=== PATIENT | female | born 1970 | race Caucasian/White ===

== ENCOUNTER → 2016-07-31 07:53 | Day surgery (SDC) | payer OTHER ==
--- NOTE | 2016-07-26 17:40 | HP ---
PREOPERATIVE HISTORY AND PHYSICAL: DATE OF ADMISSION/SURGERY: 07/31/16 [facility] DATE OF OFFICE VISIT/ENCOUNTER: 07/25/16 ATTENDING SURGEON: Caprice Sarabia MD PROCEDURE: Left thumb carpometacarpal arthroplasty. CHIEF COMPLAINT: Left thumb pain. HISTORY OF PRESENT ILLNESS: This is a 45-year-old female who complains of pain at the base of her thumb ongoing for several months. It has gradually gotten worse over time. She states any kind of use of her thumb increases the pain. She denies any previous injury to this thumb. She uses hydrocodone for pain control primarily for back pain and reports the pain medication is minimally helpful for her thumb pain. She has been offered a cortisone injection but prefers to proceed with more definitive treatment with surgical intervention in the form of a left thumb carpometacarpal arthroplasty. PAST MEDICAL HISTORY: 1. Chronic back pain. 2. Sleep apnea, CPAP at night. 3. GERD. 4. Hypertension. 5. Hypercholesterolemia. 6. Asthma. 7. Depression. PAST SURGICAL HISTORY: None. CURRENT MEDICATIONS: 1. Atorvastatin calcium 40 mg 1 tab daily. 2. Bupropion HCl ER 150 mg twice a day. 3. Esomeprazole sodium 40 mg daily. 4. Gabapentin 300 mg two daily. 5. Hydrocodone/acetaminophen 5/325 one q.4 to 6 hours p.r.n. pain. 6. Losartan potassium 50 mg daily. 7. Naproxen 500 mg b.i.d. p.r.n. 8. ProAir HFA inhaler 2 puffs q.4 hours p.r.n. 9. Singulair 10 mg daily. 10. Trazodone HCl 50 mg q.h.s. p.r.n. ALLERGIES: CECLOR, ERYTHROMYCIN, LATEX, LYRICA, PATADAY, PENICILLIN, SULFA ANTIBIOTICS. FAMILY MEDICAL HISTORY: Significant for heart disease. SOCIAL HISTORY: The patient is currently disabled and is unemployed. She is a smoker, approximately 12 cigarettes per day. She had been up to a pack and a half per day and has smoked since age 13. Denies recreational drug use, admits to alcohol use on rare occasion. REVIEW OF SYSTEMS: General: Positive for night sweats. Negative for fevers or chills. No known anesthesia problems in the past. HEENT: Negative for headache, lightheadedness, or syncopal episodes. Integumentary: Negative for abrasions, lesions, or open wounds. Cardiothoracic: Positive for hypertension. Negative for chest pain, palpitations, or edema. Pulmonary: Positive for asthma, shortness of breath with exertion, and chronic cough. GI: Positive for GERD, negative for nausea, vomiting, diarrhea, or constipation. : Positive for urinary urgency, negative for nocturia, urinary frequency, history of UTIs, or kidney problems. Musculoskeletal: Positive for current complaint, positive for chronic back pain. Neurological: Positive for depression , negative for paresthesias, numbness, history of seizure, stroke, or epilepsy. Endocrine: Negative for diabetes and thyroid issues. Hematologic: Negative for easy bruising, anemia, excessive bleeding, or history of DVT. Infectious Disease: Negative for history of MRSA, hepatitis C, or HIV. PHYSICAL EXAMINATION GENERAL: Well-developed, well-nourished, 45-year-old female in no acute distress. VITAL SIGNS: Height 5 feet tall, weight 230 pounds, pulse rate 72, blood pressure 115/80. HEENT: Normocephalic, atraumatic. Pupils are equal, round, and reactive to light and accommodation. Extraocular movements are intact. NECK: Supple. No palpable lymph nodes. Throat is clear. PULMONARY: Lungs are clear to auscultation bilaterally. No wheezes, rales, or rhonchi. CARDIOTHORACIC: Regular rate and rhythm. S1, S2. No murmurs, rubs, or gallops. No edema. ABDOMEN: Positive bowel sounds, soft, and nontender. NEUROLOGICAL: Alert and oriented x3. Cranial nerves II through XII are intact. Sensation is intact to light touch. MUSCULOSKELETAL: On exam of the left hand, she has tenderness at the thumb CMC joint, positive grind test, negative Maribel's test. She has a little bit of extension and deformity at the MP joint. She cannot fully oppose her thumb to the base of her small finger. Neurovascular function is intact and skin is intact. DIAGNOSTIC STUDIES: Imaging studies: X-rays, AP, lateral, and oblique of the left thumb, show severe degenerative arthritis of the CMC joint. IMPRESSION: Left thumb carpometacarpal arthritis. PLAN: The patient is scheduled to undergo a left thumb CMC arthroplasty with Dr. Sarabia on 07/31/16. She will follow up in the office 10 to 14 days postop for recheck and suture removal. She has a supply of hydrocodone/acetaminophen 5/325 at home as prescribed by Dr. Najera for back pain should she need additional pain medication after surgery; it will be prescribed at that time. JIM ESPINOSA [id number]/[facility] #: [id number] ISABEL
[~2016-07-31 07:53] MED LIST: Buffered Lidocaine 1% SYR 3ML* 3 ML/SYR SYRINGE INTRADERM ONE; Buffered Lidocaine 1% SYR 3ML* 3 ML/SYR SYRINGE ONE; Bupivacaine 0.5% SDV PF* 30 ML VIAL ONE; Clindamycin 900 MG IVPREMIX(* 900 MG/50 ML SDV IV ONE; HYDROcodone/ACETAMIN 5-325 MG* 1 TAB ONE; Ketorolac INJ* 30 MG/ML 1 ML VIAL IV PRN; Lidocaine 0.5%* 50 ML SDV ONE; Lidocaine 2% PF * 5 ML VIAL ONE; Midazolam* 1 MG/ML 2 ML VIAL (2 MG) ONE; Propofol* 10 MG/ML 20 ML BTL IV PUSH ONE; fentaNYL* 50 MCG/ML 2 ML VIAL (100 MCG VIAL) IV PRN; fentaNYL* 50 MCG/ML 2 ML VIAL (100 MCG VIAL) ONE
[2016-07-31 11:29] VITALS: BP 109/72
--- NOTE | 2016-08-01 00:01 | OP ---
DATE OF OPERATION: 07/31/16 - [facility] DATE OF : 70 SURGEON: Caprice Sarabia MD MERCANTILE AGENT: JIM Keith ANESTHESIOLOGIST: Daniel Anand DO ANESTHESIA: IV regional. PRE-OP DIAGNOSIS: Left thumb carpometacarpal arthritis. POST-OP DIAGNOSIS: Left thumb carpometacarpal arthritis. OPERATIVE PROCEDURE: Left thumb CMC arthroplasty. INDICATIONS: Maggie is a 45-year-old female with pain at the left thumb CMC joint. She has failed conservative treatment and presents for left thumb CMC arthroplasty. ESTIMATED BLOOD LOSS: Zero. TOURNIQUET TIME: About 35 minutes. DESCRIPTION OF PROCEDURE: The patient was brought to the operating room and was given a sedation anesthetic and a Eden block. The skin of her left upper extremity was prepped and draped in the usual sterile fashion. Some Marcaine was injected in the area of incision site. An S-shaped incision was made centered at the left thumb CMC joint. Dissected bluntly through the subcutaneous tissue and branches of the radial sensory nerve were located and then retracted by the surgical elastic knitter hand frame, Soha Pozo. The radial artery branches were located and retracted then and the first compartment tendons were retracted. A distally based U-shaped flap was created at the thumb CMC joint and it was subperiosteally dissected off the trapezium. The ligamentous attachments of the trapezium were removed and then the trapezium was split in half with an osteotome and then removed in its entirety with a rongeur. The wound was copiously irrigated with saline. The CMC joint capsule was then secured to the FCR tendon in the base of the wound with a 4-0 nylon suture and the remainder of the capsule was closed with 4-0 nylon suture. This gave the thumb metacarpal good abduction position. The skin edges were reapproximated with 4-0 nylon suture and then, the wound was dressed with Xeroform, 4x4, Webril, and a thumb spica splint with the metacarpal abducted. There was no hyperextension of the thumb MP joint. The patient tolerated the procedure well and was brought to the recovery room in good condition. [id number]/[facility] #: [id number] MTDD
== END | disposition home or self-care (01) ==
LOC: OREAST 07:53
PROVIDERS: ATTEND Orthopaedic Surgery
DX: M18.12 Unilateral primary osteoarthritis of first carpometacarpal joint, left hand (principal); I10 Essential (primary) hypertension; J45.909 Unspecified asthma, uncomplicated; G47.33 Obstructive sleep apnea (adult) (pediatric); F17.210 Nicotine dependence, cigarettes, uncomplicated
CPT/HCPCS: 88304; 88311; J2250; J2704; J3010

== ENCOUNTER 2018-03-10 11:44 | Emergency (ER) | payer OTHER ==
[2018-03-10 12:05] VITALS: BP 159/69
[2018-03-10] MEDS ORDERED: Tetan/Diph/Pertus SYR(Tdap)* 0.5 ML SYR(BOOSTRIX) use SYR IM ONE (12:10)
--- NOTE | 2018-03-10 12:16 | UC ---
Skin Complaint HPI - HPI Summary HPI Summary: 47 yo female presents with cat bite to left distal forearm. She tells me that 2 days ago she was playing with her neighbor's cat (indoor cat) and the cat bite her left wrist. Pt is unsure if the cat is UTD on vaccines. Pt washed the area and applied antibiotic ointment. Unsure date of last tetanus. Noticed some yellow drainage from one of the puncture wounds this morning - prompting her visit to . Denies fever or chills. - History of Current Complaint Chief Complaint: UCBiteInjury Time Seen by Provider: 03/10/18 12:09 Stated Complaint: CAT BITE Hx Obtained From: Patient Hx Last Menstrual Period: 1 MONTH AGO Onset/Duration: Gradual Onset Skin Exposure Onset/Duration: Days Ago Onset Severity: Moderate Current Severity: Moderate Pain Intensity: 6 Pain Scale Used: 0-10 Numeric - Allergy/Home Medications Allergies/Adverse Reactions: Allergies Allergy/AdvReac Type Severity Reaction Status Date / Time bee venom protein (honey bee) Allergy Severe Difficulty Verified 03/10/18 12:05 Breathing latex Allergy Severe Rash Verified 03/10/18 12:05 pregabalin [From Lyrica] Allergy Intermediate Hives Verified 03/10/18 12:05 sulfamethoxazole Allergy Intermediate Hives Verified 03/10/18 12:05 [From Bactrim] trimethoprim [From Bactrim] Allergy Intermediate Hives Verified 03/10/18 12:05 Penicillins AdvReac Mild gives her Verified 03/10/18 12:05 "the shakes" erythromycin base AdvReac GI Upset Verified 03/10/18 12:05 pataday Allergy Severe burning Uncoded 03/10/18 12:05 and swelling eyes Review of Systems Constitutional: Negative Skin: Other - Cat bite left wrist Respiratory: Negative Cardiovascular: Negative Neurovascular: Negative Neurological: Negative Psychological: Negative All Other Systems Reviewed And Are Negative: Yes PMH/Surg Hx/FS Hx/Imm Hx - Additional Past Medical History Additional PMH: Chronic pain Cardiovascular History: Hypertension Respiratory History: Asthma GI/ History: Gastroesophageal Reflux Psychological History: Anxiety, Depression - Surgical History Surgical History: Yes Surgery Procedure, Year, and Place: Left thumb joint replacement 07/2016 [facility] - Family History Known Family History: Positive: Hypertension Negative: Cardiac Disease, Diabetes - Social History Occupation: Disabled Lives: With Family Alcohol Use: None Substance Use Type: None Smoking Status (MU): Current Every Day Smoker Type: Cigarettes Amount Used/How Often: 8 cigarettes/day Have You Smoked in the Last Year: Yes When Did the Patient Quit Smoking/Using Tobacco: 08/13/2016 Household Exposure Type: Cigarettes Physical Exam - Summary Physical Exam Summary: GENERAL: NAD. WDWN. No pain distress. SKIN: LEFT WRIST: Two small puncture wounds on dorsal aspect. One puncture wound with mild yellow drainage. No warmth or streaking. NECK: Supple. Nontender. No lymphadenopathy. CHEST: No accessory muscle use. Breathing comfortably and in no distress. CV: Pulses intact. Cap refill <2seconds MSK: Left wrist: FROM NEURO: Alert. PSYCH: Age appropriate behavior. Triage Information Reviewed: Yes Vital Signs: Initial Vital Signs Temp 98.6 F 03/10/18 12:00 Pulse 99 03/10/18 12:00 Resp 18 03/10/18 12:00 BP 159/69 03/10/18 12:00 Pulse Ox 96 03/10/18 12:00 Vital Signs Reviewed: Yes Course/Dx - Course Course Of Treatment: Cat bite to left wrist. Pt says that she is allergic to PCN , therefore will start her with Doxycycline. tdap updated today - Diagnoses Provider Diagnoses: Cat bite left wrist Discharge - Sign-Out/Discharge Documenting (check all that apply): Patient Departure All imaging exams completed and their final reports reviewed: No Studies - Discharge Plan Condition: Stable Disposition: HOME Prescriptions: DOXYcycline CAP(*) [DOXYcycline 100MG CAP(*)] 100 mg PO BID #14 cap Patient Education Materials: Animal Bite (ED) Referrals: Alphonso Pal MD [Primary Care Provider] - Additional Instructions: If you develop a fever, shortness of breath, chest pain, new or worsening symptoms - please call your PCP or go to the ED. Your blood pressure was high at todays visit. Please see your primary provider within 4 weeks for recheck and re-evaluation. - Billing Disposition and Condition Condition: STABLE Disposition: Home - Attestation Statements Provider Attestation: Per institutional requirements, I have reviewed the chart, however, I was not consulted specifically or made aware of this patient by the midlevel provider. I did not personally evaluate, interact with , or disposition this patient.
== END 2018-03-10 12:30 | disposition home or self-care (01) ==
LOC: UCEAST 11:44
CPT/HCPCS: 90715; 99212; G0463

== ENCOUNTER 2018-07-22 05:37 | Day surgery (SDC) | payer OTHER ==
--- NOTE | 2018-07-06 19:37 | HP ---
PREOPERATIVE HISTORY AND PHYSICAL: DATE OF SURGERY/ADMISSION: 07/11/18 DATE OF OFFICE VISIT/ENCOUNTER: 07/02/18 ATTENDING SURGEON: Caprice Sarabia MD * (DICTATED BY JIM ESPINOSA) PROCEDURE: Left thumb trigger release, right thumb CMC joint cortisone injection. CHIEF COMPLAINT: Left thumb triggering, base of right thumb arthritis pain. HISTORY OF PRESENT ILLNESS: This is a 47-year-old female who has had ongoing problems with triggering in her left thumb for a couple of months now. She has had a cortisone injection in the past, which is helpful, but unfortunately the triggering came back. She has also been complaining of pain at the base of her right thumb and x-rays have shown degenerative changes at the CMC joint. She has also had a cortisone injection for this in the past, which was helpful, but the pain has returned. She is interested in pursuing surgical intervention for the right thumb trigger release and also will have a cortisone injection for the right thumb CMC joint at that time. The patient has recently been using a wheel-chair for some mobility issues related to her chronic back pain. She has also been diagnosed with diabetes. She is currently using tramadol for pain control primarily for her back pain that is prescribed by Dr. Najera. PAST MEDICAL HISTORY: 1. Chronic back pain. 2. Diabetes. 3. Sleep apnea, CPAP at night. 4. GERD. 5. Hypertension. 6. Hypercholesterolemia. 7. Asthma. 8. Depression. PAST SURGICAL HISTORY: Left thumb CMC joint arthroplasty. CURRENT MEDICATIONS: 1. Atorvastatin 40 mg 1 tab daily. 2. Bupropion HCl ER XL 300 mg daily. 3. Clonazepam 0.5 mg daily. 4. Escitalopram oxalate 10 mg daily. 5. Esomeprazole magnesium 40 mg daily. 6. Gabapentin 300 mg 1 tab q.a.m., 3 tabs q.h.s. 7. Ipratropium bromide/albuterol sulfate use as needed. 8. Losartan potassium 50 mg daily. 9. Metformin HCl 500 mg twice a day. 10. Mirtazapine 15 mg daily. 11. Naproxen 500 mg twice daily as needed. 12. ProAir HFA 2 puffs every 4 hours as needed. 13. Proventil HFA 2 puffs q.4 hours. 14. QVAR 80 mcg/ACT. 15. Singulair 10 mg daily. ALLERGIES: CECLOR, ERYTHROMYCIN, LATEX, LYRICA, PATADAY, PENICILLIN, SULFA ANTIBIOTICS. FAMILY MEDICAL HISTORY: Significant for heart disease. SOCIAL HISTORY: The patient is currently disabled and unemployed. She is a smoker. She smokes approximately a half pack a day since age 13. She denies recreational drug use. She drinks alcohol on rare occasion. REVIEW OF SYSTEMS: Negative for general, cephalic, cardiovascular, GI, . Musculoskeletal: Positive for complaint and chronic back pain. Negative for integumentary, endocrine, neurologic, and hematologic symptoms. Infectious Disease: Negative for history of MRSA, hepatitis . PHYSICAL EXAMINATION GENERAL: Well-nourished 47-year-old female, in no acute distress. VITAL SIGNS: Height 5 feet tall, weight 266 pounds. Pulse rate 88, blood pressure 126/76. HEENT: Normocephalic, atraumatic. Pupils are equal, round, and reactive to light and accommodation. Extraocular movements are intact. Throat is clear. NECK: Supple. No palpable lymph nodes. PULMONARY: Lungs are clear to auscultation bilaterally. No wheezes, rales, or rhonchi. CARDIOVASCULAR: Regular rate and rhythm. S1, S2. No murmurs, rubs, or gallops. No edema. ABDOMEN: Positive bowel sounds. Soft, nontender. NEUROLOGICAL: Alert and oriented x3. Cranial nerves II through XII are intact. Sensation is intact to light touch. MUSCULOSKELETAL: On exam of the left thumb, she has tenderness to palpation at the A1 joey secondary to pain. On exam of her right thumbs, there is tenderness at the base of the thumb at the CMC joint. She has good motion in her thumb in abduction and adduction. She has a positive grind test. Neurovascular function is intact. IMAGING STUDIES: X-rays: AP, lateral, and oblique of the right thumb showed mild degenerative arthritis at the CMC joint. IMPRESSION: Left thumb trigger thumb, right thumb CMC arthritis. PLAN: The patient is scheduled to undergo a left thumb trigger thumb release and a right thumb CMC joint cortisone injection with Dr. Sarabia on 07/11/18. She will return to the office 10 days postop for followup and suture removal. She has pain medication, tramadol at this time as prescribed by Dr. Najera and she will use that for postoperative pain management. JIM ESPINOSA [id number]/[facility] #: [id number] [facility] HEALTHJerrod
[~2018-07-22 05:37] MED LIST changes: -Buffered Lidocaine 1% SYR 3ML* 3 ML/SYR SYRINGE INTRADERM ONE; -Buffered Lidocaine 1% SYR 3ML* 3 ML/SYR SYRINGE ONE; +Buffered Lidocaine 1% SYRIN* 1 ML/SYRINGE INTRADERM ONE; -Bupivacaine 0.5% SDV PF* 30 ML VIAL ONE; -Clindamycin 900 MG IVPREMIX(* 900 MG/50 ML SDV IV ONE; -HYDROcodone/ACETAMIN 5-325 MG* 1 TAB ONE; -Ketorolac INJ* 30 MG/ML 1 ML VIAL IV PRN; -Lidocaine 0.5%* 50 ML SDV ONE; -Lidocaine 2% PF * 5 ML VIAL ONE; -Midazolam* 1 MG/ML 2 ML VIAL (2 MG) ONE; +Ondansetron TAB* 4 MG PO ONE; -Propofol* 10 MG/ML 20 ML BTL IV PUSH ONE; -fentaNYL* 50 MCG/ML 2 ML VIAL (100 MCG VIAL) IV PRN; -fentaNYL* 50 MCG/ML 2 ML VIAL (100 MCG VIAL) ONE
[2018-07-22] MEDS ORDERED: Famotidine IV* 10 MG/ML 2 ML (20 mg) IV ONE (06:00)
[2018-07-22] MEDS ORDERED: Lactated Ringers 1000 ML Bag* 1,000 ML IV SCH (06:00)
[2018-07-22] MEDS ORDERED: Famotidine IV* 10 MG/ML 2 ML (20 mg) ONE (06:31)
[2018-07-22] MEDS ORDERED: Ondansetron ODT TAB* 4 MG ONE (06:31)
[2018-07-22] MEDS ORDERED: Morphine VIAL* 4 MG/ML VIAL (1 ml vial) IV PRN (06:45)
[2018-07-22] MEDS ORDERED: DiMENhydriNATE IV* 50 MG/ML VIAL IV PUSH PRN (06:45)
[2018-07-22] MEDS ORDERED: PROCHLORPERAZINE INJ 5 MG/ML 2 ML VIAL IV PRN (06:45)
[2018-07-22] MEDS ORDERED: fentaNYL* 50 MCG/ML 2 ML VIAL (100 MCG VIAL) IV PRN (06:45)
[2018-07-22] MEDS ORDERED: Naloxone* 0.4 MG/ML 1 ML VIAL IV PRN (06:45)
[2018-07-22] MEDS ORDERED: oxyCODONE/Acetamin 5/325 MG* TAB PO PRN (06:45)
[2018-07-22] MEDS ORDERED: Bupivacaine 0.5%* 50 ML VIAL ONE (07:17)
[2018-07-22] MEDS ORDERED: Lidocaine 1% INJ* 10 MG/ML 30 ML SDV ONE (07:17)
[2018-07-22] MEDS ORDERED: Midazolam* 1 MG/ML 5 ML VIAL (5 MG) ONE (07:22)
[2018-07-22] MEDS ORDERED: fentaNYL* 50 MCG/ML 2 ML VIAL (100 MCG VIAL) ONE (07:22)
[2018-07-22] MEDS ORDERED: methylPREDNISolone ACETATE 80* 80 MG/ML 1 ML VIAL ONE (07:34)
[2018-07-22] MEDS ORDERED: oxyCODONE/Acetamin 5/325 MG* TAB ONE (08:40)
[2018-07-22 10:15] VITALS: BP 145/78
--- NOTE | 2018-07-22 20:14 | OP ---
DATE OF OPERATION: 07/22/18 - [facility] DATE OF : 70 SURGEON: Caprice Sarabia MD. MECHANICAL ENGINEERING DIRECTOR: JIM Keith. ANESTHESIA: Local MAC. PRE-OP DIAGNOSIS: Left trigger thumb and right thumb carpometacarpal arthritis. POST-OP DIAGNOSIS: Left trigger thumb and right thumb carpometacarpal arthritis. OPERATIVE PROCEDURE: Left trigger thumb release and right thumb carpometacarpal injection. ESTIMATED BLOOD LOSS: Zero. TOURNIQUET TIME: Approximately 10 minutes on the left. INDICATIONS FOR PROCEDURE: Maggie is a 47-year-old female with pain in both thumbs. The left is triggering and locking and the right is painful at the base. She presents for right thumb injection and left trigger thumb release. DESCRIPTION OF PROCEDURE: The patient was brought to the operating room, was given a sedation anesthetic and a local infiltration of 10 cc of 1% plain lidocaine over the A1 joey of the left thumb. Additionally was given injection of 80 mg of Depo- Medrol and 2 cc of 1% plain lidocaine in the area of the right thumb CMC joint. The skin of her left hand and forearm was prepped and draped in the usual sterile fashion. The hand and forearm were exsanguinated and the tourniquet elevated to 250 mmHg. A transverse incision was made centered over the A1 joey. We dissected bluntly through the subcutaneous tissue. Branches of the common digital nerve of the thumb were located and retracted by the rn neurosurgical, Soha Pozo. The A1 joey was incised longitudinally completely releasing the flexor tendon, which was in good condition. The wound was irrigated and the skin edges reapproximated with 4-0 nylon suture. The wound was dressed with Xeroform, 4x4, Webril, and an Efraín wrap. The patient tolerated the procedure well and was brought to the recovery room in good condition. [id number]/[facility] #: [id number] [facility]
== END 2018-07-22 09:30 | disposition home or self-care (01) ==
LOC: OR 05:37
PROVIDERS: ATTEND Orthopaedic Surgery
DX: M65.312 Trigger thumb, left thumb (principal); M18.11 Unilateral primary osteoarthritis of first carpometacarpal joint, right hand; E11.9 Type 2 diabetes mellitus without complications; Z79.84 Long term (current) use of oral hypoglycemic drugs; Z72.0 Tobacco use; E78.5 Hyperlipidemia, unspecified; G47.33 Obstructive sleep apnea (adult) (pediatric)
CPT/HCPCS: A9270-GY; J1040; J2250; J3010

== ENCOUNTER → 2018-11-18 05:51 | Day surgery (SDC) | payer OTHER ==
--- NOTE | 2018-11-10 13:21 | HP ---
PREOPERATIVE HISTORY AND PHYSICAL: DATE OF ADMISSION/SURGERY: 11/18/18 DATE OF OFFICE VISIT/ENCOUNTER: 10/29/18 ATTENDING SURGEON: Caprice Sarabia MD.* (DICTATED BY JIM ESPINOSA) PROCEDURE: Left wrist carpal tunnel release. HISTORY OF PRESENT ILLNESS: This is a 48-year-old female, who has had complaint of numbness and tingling in her left hand ongoing for some time now. She recently had a nerve conduction study, which showed carpal tunnel syndrome. She has tried wearing wrist braces in the past, but they were not helpful and in fact made her symptoms worse. She denies any specific injury. The symptoms have been progressively worsening and she is now interested in surgical intervention. The patient has recently been using a wheelchair for some mobility issues related to her chronic back pain. She has also been diagnosed with diabetes. She is currently using tramadol for pain control primarily for her back. This is prescribed by Dr. Najera. PAST MEDICAL HISTORY: 1. Chronic back pain. 2. Diabetes. 3. Sleep apnea with CPAP at night. 4. GERD. 5. Hypertension. 6. Hypercholesterolemia. 7. Asthma. 8. Depression. PAST SURGICAL HISTORY: 1. Left thumb CMC joint arthroplasty. 2. Left thumb trigger release. CURRENT MEDICATIONS: 1. Atorvastatin calcium 40 mg daily. 2. Bupropion HCl ER XL 300 mg daily. 3. Clonazepam 0.5 mg daily. 4. Escitalopram oxalate 10 mg daily. 5. Cyanocobalamin 1000 mcg/mL monthly. 6. Esomeprazole magnesium 40 mg daily. 7. Esomeprazole sodium 40 mg daily. 8. Gabapentin 300 mg 1 q.a.m., 3 q.h.s. 9. Ipratropium bromide/albuterol sulfate p.r.n. 10. Losartan potassium 50 mg daily. 11. Metformin HCl 500 mg 1 twice a day. 12. Mirtazapine 15 mg. 13. Naproxen 500 mg twice a day p.r.n. 14. ProAir HFA inhaler p.r.n. 15. Proventil HFA inhaler 2 puffs q.4 hours. 16. QVAR 80 mcg/ACT. 17. Singulair 10 mg daily. 18. Tramadol HCl 50 mg b.i.d. 19. Vitamin D 5000 units weekly. ALLERGIES: CECLOR, ERYTHROMYCIN, LATEX, LYRICA, PATADAY, PENICILLIN, SULFA ANTIBIOTICS. FAMILY MEDICAL HISTORY: Significant for heart disease. SOCIAL HISTORY: The patient is currently disabled and unemployed. She is a smoker approximately half-a-pack a day since age 13. She also uses a vape. She denies recreational drug use and she denies alcohol use. REVIEW OF SYSTEMS: Negative for general, cephalic, cardiovascular, GI, and . Musculoskeletal: Positive for current complaint along with chronic back pain. Negative integumentary, endocrine, neurologic, and hematologic symptoms. Infectious Diseases: Negative for history of MRSA, hepatitis C, HIV. PHYSICAL EXAMINATION GENERAL: A well-developed, well-nourished 48-year-old female, in no acute distress. She presents in a wheelchair. VITAL SIGNS: Height 5 feet tall, weight 255 pounds. Pulse rate 79, blood pressure 138/82. HEENT: Normocephalic, atraumatic. Pupils are equal, round, and reactive to light and accommodation. Extraocular movements are intact. Throat is clear. NECK: Supple. No palpable lymph nodes. PULMONARY: Lungs are clear to auscultation bilaterally. No wheezes, rales, or rhonchi. CARDIOVASCULAR: Regular rate and rhythm. S1, S2. No murmurs, rubs, or gallops. No edema. ABDOMEN: Positive bowel sounds. Soft, nontender. NEUROLOGICAL: Alert and oriented x3. Cranial nerves II through XII are intact. MUSCULOSKELETAL: On exam of her left hand, there is minimal thenar wasting and she has weakness with thumb abduction, decreased sensation in all of her fingers. Positive Tinel's sign of the median nerve at the wrist. IMAGING STUDIES: EMG nerve conduction study showed evidence of left carpal tunnel syndrome. IMPRESSION: Left carpal tunnel syndrome. PLAN: The patient is scheduled to undergo a left carpal tunnel release with Dr. Sarabia on 11/18/18. She will return to the office 10 days postop for followup and suture removal. A prescription for [place]wood was e-scribed to the patient's pharmacy for postoperative pain management. She will be sure to contact Dr. Najera to let him know she will be taking an additional narcotic other than what he prescribes. RHONDA WOODRUFF, JIM [id number]/[facility] #: [id number] [facility] CENTERJerrod
[~2018-11-18 05:51] MED LIST changes: -Buffered Lidocaine 1% SYRIN* 1 ML/SYRINGE INTRADERM ONE; +Lidocaine 1% INJ* 10 MG/ML 30 ML SDV ONE; +Lidocaine 2% PF * 5 ML VIAL ONE; +Midazolam* 1 MG/ML 2 ML VIAL (2 MG) ONE; +Naloxone* 0.4 MG/ML 1 ML VIAL IV PRN; -Ondansetron TAB* 4 MG PO ONE; +Propofol* 10 MG/ML 20 ML BTL ONE; +fentaNYL* 50 MCG/ML 2 ML VIAL (100 MCG VIAL) ONE
[2018-11-18 08:45] VITALS: BP 127/72
--- NOTE | 2018-11-18 13:18 | OP ---
CC: Dr. Sarabia* OPERATIVE REPORT: DATE OF OPERATION: 11/18/18 - [facility] DATE OF : 70 SURGEON: Caprice Sarabia MD. SAP DATA ANALYST: JIM Keith. ANESTHESIOLOGIST: Lawrence Ramirez MD. ANESTHESIA: Local MAC. PRE-OP DIAGNOSIS: Left carpal tunnel syndrome. POST-OP DIAGNOSIS: Left carpal tunnel syndrome. OPERATIVE PROCEDURE: Left carpal tunnel release. ESTIMATED BLOOD LOSS: Zero. TOURNIQUET TIME: About 10 minutes. INDICATIONS FOR PROCEDURE: Maggie is a 48-year-old female who has numbness and tingling in the median nerve distribution of her left hand. She presents for left carpal tunnel release. DESCRIPTION OF PROCEDURE: The patient was brought to the operating room, was given a sedation anesthetic and a local infiltration of 10 cc of 1% plain lidocaine in the palm of her left hand. The skin of her left hand and forearm was then prepped and draped in usual sterile fashion. The hand and forearm were exsanguinated and the tourniquet elevated to 250 mmHg. A longitudinal incision was made in the palm in line with the ring finger. We dissected through the subcutaneous tissue down to the transverse carpal ligament. The ligament was divided sharply with a knife and then more proximally with the scissors. The nerve was dissected free from the surrounding tissue and there was an area of moderate compression in the mid portion of the ligament. The wound was irrigated and the skin edges reapproximated with 4- 0 nylon suture. The wound was dressed with Xeroform, 4x4, Webril, and Efraín wrap. The patient tolerated the procedure well and was brought to the recovery room in good condition. [id number]/[facility] #: [id number] [facility]
== END | disposition home or self-care (01) ==
LOC: OR 05:51
PROVIDERS: ATTEND Orthopaedic Surgery
DX: G56.02 Carpal tunnel syndrome, left upper limb (principal); E11.9 Type 2 diabetes mellitus without complications; Z79.84 Long term (current) use of oral hypoglycemic drugs; M54.9 Dorsalgia, unspecified; G47.33 Obstructive sleep apnea (adult) (pediatric); K21.9 Gastro-esophageal reflux disease without esophagitis; I10 Essential (primary) hypertension; E78.00 Pure hypercholesterolemia, unspecified; J45.909 Unspecified asthma, uncomplicated; F32.9 Major depressive disorder, single episode, unspecified; E78.5 Hyperlipidemia, unspecified; Z68.43 Body mass index [BMI] 50.0-59.9, adult
CPT/HCPCS: 81025; J2250; J2704; J3010

== ENCOUNTER 2019-02-07 09:41 | Emergency (ER) | payer OTHER ==
--- OUTSIDE RECORDS SUMMARY | 2019-02-07 09:50 | XMS REPORT | Continuity of Care Document ---
:1970 External Reference #:[id number] Author Name Alphonso Pal M.D. Address [address] [facility] [address] [place] [address] Care Team Providers Name Role Phone HCP given Care Team Information Hand Rounder Unavailable Je Castillo MD [facility] - Care Team Information Hand Rounder [phone] Ophthalmology [facility]. - Durable Care Team Information Hand Rounder [employer] Cristino Galeas MD - Orthopaedic Care Team Information Hand Rounder [facility] - Pain Medicine Care Team Information Hand Rounder [phone] Sleep Clinic - Sleep Disorder Care Team Information Hand Rounder [phone] Diagnostic Caprice Sarabia MD - Orthopaedic Care Team Information Hand Rounder [phone] Surgery Je Wilburn MD - Internal Care Team Information Hand Rounder [phone] Medicine EvangelistDoris MD - Physical Care Team Information Hand Rounder Medicine & Rehabilitation Jeb Chavez M.D. - Rheumatology Care Team Information Hand Rounder [phone] Problems Active Problems Provider Date Pure hypercholesterolemia Alphonso Pal M.D. Onset: 05/31/2009 Dysthymia Alphonso Pal M.D. Onset: 05/31/2009 Anxiety state Alphonso Pal M.D. Onset: 05/31/2009 Backache Alphonso Pal M.D. Onset: 05/31/2009 Gastroesophageal reflux disease Alphonso Pal M.D. Onset: 05/31/2009 Intrinsic asthma without status asthmaticus Alphonso Pal M.D. Onset: Mixed urinary incontinence Alphonso Pal M.D. Onset: 11/03/2010 Benign essential hypertension Alphonso Pal M.D. Onset: 09/04/2013 Elongated styloid process syndrome Alphonso Pal M.D. Onset: 03/28/2015 Degeneration of lumbar intervertebral disc Alphonso Pal M.D. Onset: 03/28 Obstructive sleep apnea syndrome Alphonso Pal M.D. Onset: 03/28/2015 Essential hypertension Alphonso Pal M.D. Onset: 03/28/2015 Mild intermittent asthma Alphonso Pal M.D. Onset: 03/28/2015 Meralgia paresthetica of right leg Adriel Zamorano D.OEric Onset: 10/13/2015 Spondylolisthesis L5/S1 level Adriel Zamorano D.OEric Onset: 10/13/2015 Sciatica Adriel Zamorano D.OEric Onset: 10/13/2015 Acquired spondylolisthesis Adriel Zamorano D.OEric Onset: 05/31/2016 Mild intermittent asthma Alphonso Pal M.D. Onset: 10/08/2017 Cobalamin deficiency Alphonso Pal M.D. Onset: 10/27/2018 Vitamin D deficiency Alphonso Pal M.D. Onset: 10/27/2018 Type 2 diabetes mellitus Alphonso Pal M.D. Onset: 02/02/2019 Social History Type Date Description Comments Sex Unknown Tobacco Use Reviewed: 09/03/17 current cigarette smoker 08/2017: quit x6 months then restarted Tobacco Use Reviewed: 10/27/18 Patient is a current using vape pen mostly, smoker, smokes every day occasional cigarettes; encouraged complete cessation Smoking Status Reviewed: 10/27/18 Patient is a current using vape pen mostly , smoker, smokes every day occasional cigarettes; encouraged complete cessation Allergies, Adverse Reactions, Alerts Active Allergies Reaction Severity Comments Date Penicillins made pt feel shakey 12/21/2008 Ceclor "doesn't work anymore" 12/21/2008 Erythromycin GI effects 12/21/2008 Pataday PT States Eye Swelling 03/01/2009 And Burning Sulfamethoxazole w/Trimethoprim Hives 12/20/2009 Lyrica Hives 04/12/2010 Latex burning, rash 12/11/2016 Hymenoptera Stings 03/18/2017 Inactive Allergies Bee Stings 01/29/2009 Medications Active Medications SIG Qnty Indications Ordering Date Provider Guaifenesin ER 1 twice a day as 30tabs J20.9 Alphonso Pal, 08/11/2018 1200mg needed for chest M.D. Tablets ER 12HR congestion Baclofen 1 tabs for muscle 30tabs M54.2 Alphonso Pal, 08/11/2018 10mg Tablets tightness, three M.D. times a day Vitamin D take 1 capsule by 14caps E55.9 Alphonso Pal, 07/28/2018 (Ergocalciferol) mouth every week; M.D. for vitamin d [id number] Capsules deficiency Montelukast Sodium Take One Tablet By 30tabs J45.20 Alphonso Pal, 06/27 Mouth Every Evening M.D. 10mg Tablets For Allergies And Asthma J30.9 Omeprazole Take One Capsule By 30caps K21.9 Adriel Zamorano, 05/16/2018 40mg Mouth Every Day D.O. Capsules DR [place] Fastclix use once a day as 102units E11.9 Alphonso Pal, 05/02 Lancets directed for blood M.D. Misc sugar monitoring Onetouch Ultra 2 use as directed for 1units E11.9 Alphonso Pal, 2017 blood sugar M.D. w/Device Kit monitoring Onetouch Ultra Blue use as directed up 100units E11.9 Alphonso Pal, 02/2018 to once/day for M.D. Strips blood sugar monitoring Metformin HCL ER Take One Tablet By 60tabs E11.9 Alphonso Pal, 2017 500mg Mouth Twice A Day M.D. Tablets ER 24HR OT/PT Wheelchair M54.5 Alphonso Pal, 03/05/2018 Evaluation M.D. R26.2 M51.36 [place] Ultra Strength use as directed on 4oz M25.50 Alphonso Pal, 02/04 package insert; for M.D. 4-10-30% Cream pain relief PT For Neck Pain W/ L please evaluate and M54.12 Alphonso Pal, 2017 Arm Radicular Symptoms treat, instruct in M.D. hep, modalities prn. Epinephrine use as directed for 2units Z91.030 Alphonso Pal, 11/15/2017 0.3mg/0.3ML anaphylactic M.D. Solution Auto-Inject reactions to bee stings Ipratropium inhale contents of 1 180ml J45.20 Alphonso Pal, 10/08/2017 [place]/Albuterol vial via nebulizer M.D. Sulfate every 4 hours as 0.5-2.5(3)mg/3ML needed for cough, Solution wheezing, sob Qvar to be used during 8.700gm J45.20 Alphonso Pal, 10/08/2017 80mcg/Act Aerosol allergy seasons and M.D. at onset of colds; 2 puffs 2x/day; for asthma; rinse mouth out after use Tramadol HCL Unknown 09/27/2017 50mg Tablets Mirtazapine Take One Tablet By 30tabs G47.00 Alphonso Pal, 07/10/2017 30mg Tablets Mouth AT Bedtime For M.D. Sleep Bupropion Take One Tablet By 30tabs F34.1 Alphonso Pal, 04/01/2017 Hydrochloride ER (XL) Mouth Every Morning M.D. For Mood 300mg Tablets ER 24HR F41.9 Clonazepam 1/2-1 by mouth 30tabs F41.9 Alphonso Pal, 02/13/2017 0.5mg Tablets three times a day M.D. as needed for anxiety Escitalopram Oxalate Take One Tablet By 30tabs F34.1 Alphonso Pal, 10mg Mouth Every Day M.D. Tablets For Mood F41.9 FQ Prevail Extra use as directed up 180units Alphonso Pal, 01/24/2017 Underwear LG to 8 times a day M.D. Babar wheeled walker w 1units M51.36 Lisa Miranda PA 01/03/2017 [facility] height adjustable use as directed Ketoconazole use 3 times a week 120units L21.0 Alphonso Pal, 10/29/2016 2% Shampoo to start, then M.D. taper down as directed Neti Pot use as directed, 1units J01.00 Alphonso Pal, 10/29/2016 for irrigating M.D. sinuses Alkalol use in neti pot 1bottle J01.00 Alphonso Pal, 10/29/2016 Solution 2x/day as needed; M.D. for sinus congestion Gabapentin Take One Capsule 120caps G57.11 Alphonso Pal, 07/30/2016 300mg Capsules Every Morning And M.D. Take Three Capsules AT Bedtime For Neck And Right Leg Pain M54.31 M54.2 Wheelchair Repair Joystick 1units M51.36 Adriel Zamorano, 05/31/2016 [facility] required for D.O. motorized wheelchair Nebulizer use as directed 1units J45.30 Alphonso Pal, 03/26/2016 Device M.D. Naproxen Take One Tablet By 60tabs M43.17 Alphonso Pal, 01/30/2016 500mg Tablets Mouth Twice A Day as M.D. Needed For Back Pain, Take With Food M54.5 M51.36 Fluticasone Propionate 2 sprays into each 16units J31.0 Alphonso Pal, 10/11/2015 nostril once daily M.D. 50mcg/Act Suspension for nasal congestion H69.93 H92.03 Med Cup For Nebulizer with tubing 1units J45.20 Alphonso Pal M.D. Wheelchair Table Assembler 1units R26.89 Alphonso Pal M.D. 02/08/2015 M51.36 Ventolin HFA inhale two puffs by 18units J45.21 Alphonso Pal, 2013 108(90Base) mouth every 4 hours M.D. mcg/Act Aerosol as needed for asthma symptoms J45.20 Losartan Potassium Take One Tablet By 30tabs I10 Alphonso Pal, 2013 50mg Mouth Every Morning M.D. Tablets For High Blood Pressure Batteries And Drive and labour to M51.36 Alphonso Pal, 10/08/2013 Tires For C install M.D. M54.89 R26.89 Thumb Spica Splint For use as directed 1units 727.04 Alphonso Pal M.D. 09/04/2013 Left Hand 842.12 Home Health please provide M54.89 Alphonso Pal, 07/07/2013 Aid/City Editor services as able M.D. Atorvastatin Calcium Take One Tablet By 30tabs E78.0 Alphonso Pal, 40mg Mouth Every Day For M.D. Tablets High Cholesterol Castors X2 For Power M51.36 Alphonso Pal, 12/06/2011 Wheelchair M.D. M54.89 Power Wheelchair 1units M54.89 Alphonso Pal, 02/06/2011 M.D. Depends Adult large size; use as 4Boxes N39.46 Alphonso Pal, 11/03/2010 directed, up to 8/day, M.DEric for incontinence History Medications Fluticasone 2 sprays each 9.900ml H69.92 Demarco, 09/24/2018 - Propionate Nasal nostril once a day Macy Werner 10/24/2018 [place] for nasal 50mcg/Act congestion, for 1 Suspension month H92.02 Medications Administered in Office Medication SIG Qnty Indications Ordering Provider Date B12 Injection Alphonso Pal M.D. 11/25/2018 Injection SC/Im Injections Alphonso Pal M.D. 11/25/2018 Injection B12 Injection Alphonso Pal M.D. 10/27/2018 Injection SC/Im Injections Alphonso Pal M.D. 10/27/2018 Injection B12 Injection Nurse's Schedule 09/22/2018 Injection SC/Im Injections Nurse's Schedule 09/22/2018 Injection B12 Injection Nurse's Schedule 08/25/2018 Injection SC/Im Injections Nurse's Schedule 08/25/2018 Injection B12 Injection Nurse's Schedule 08/14/2018 Injection SC/Im Injections Nurse's Schedule 08/14/2018 Injection B12 Injection Nurse's Schedule 08/07/2018 Injection SC/Im Injections Nurse's Schedule 08/07/2018 Injection B12 Injection Alphonso Pal M.D. 07/28/2018 Injection SC/Im Injections Alphonso Pal M.D. 07/28/2018 Injection H1N1 Swine Flu Vaccine Alphonso Pal M.D. 08/08/2009 Injection Immunizations CPT Code Status Date Vaccine Lot # [id number] Given 04/08/2018 Influenza Virus Vaccine, Quadrivalent, Split, [id number] Preservative Free [id number] Given 03/10/2018 Adacel or Boostrix, [id number] 24292 Given 02/13/2017 Influenza Virus Vaccine, Quadrivalent, Split, [id number] Preservative Free 07278 Given 08/28/2016 Prevnar 13 [id number] 09086 Given 02/14/2016 Influenza Virus Vaccine, Quadrivalent, Split, [id number] Preservative Free 47921 Given 03/28/2015 Influenza Virus Vaccine, Quadrivalent, Split, [id number] Preservative Free 01493 Given 12/06/2014 Flu, Split Virus 3Yrs 76070 Given 04/30/2014 Flu, Split Virus 3Yrs [id number] 87382 Given 05/23/2013 Flu, Split Virus 3Yrs [id number] 30764 Given 04/07/2012 Flu, Split Virus 3Yrs [id number] 86239 Given 02/21/2011 Flu, Split Virus 3Yrs [id number] 70006 Given 07/14/2010 Pneumococcal Immunization [id number] 66067 Given 07/14/2010 Adacel or Boostrix, TDaP [id number] 92535 Given 04/12/2010 Flu, Split Virus 3Yrs [id number] 32475 Given 03/01/2009 Flu, Split Virus 3Yrs [id number] 66772 Given 09/19/2000 Td Immunization U-MenB Given Unknown Meningococcal B,Unspecified Vital Signs Date Vital Result Comment 02/02/2019 3:43pm BP Systolic 122 mmHg BP Diastolic 78 mmHg Weight 253.00 lb w/shoes 11/25/2018 1:49pm BP Systolic 126 mmHg BP Diastolic 82 mmHg Results Test Date Facility Test Result H/L Range Note Laboratory test 02/02/2019 In House Hemoglobin A1c 6.3 finding Laboratory test 11/18/2018 [facility] Point of Care 99 mg/dL Normal 70-100 1 finding [phone] Glucose Laboratory test 10/27/2018 In House Hemoglobin A1c 6.1 finding 1 Copping Machine Operator: [id number] Procedures Date Code Description Status 11/25/2018 44150 SC/Im Injections Completed 10/27/2018 64197 SC/Im Injections Completed 09/22/2018 06968 SC/Im Injections Completed 08/25/2018 88782 SC/Im Injections Completed 08/14/2018 26253 SC/Im Injections Completed 08/07/2018 15526 SC/Im Injections Completed 07/28/2018 [id number] Diabetic Foot Exam Completed 06/10/2018 [id number] Diabetic Retinal Eye Exam Completed 12/22/2017 [id number] Mammogram Completed Medical Devices Description No Information Available Encounters Type Date Location Provider Dx Diagnosis Office Visit 11/25/2018 Main Office Alphonso Pal, M51.36 Other intervertebral 1:45p M.D. disc degeneration, lumbar region M43.17 Spondylolisthesis, lumbosacral region F34.1 Dysthymic disorder G56.03 Carpal tunnel syndrome, bilateral upper limbs E55.9 Vitamin D deficiency, unspecified D51.9 Vitamin B12 deficiency anemia, unspecified Office Visit 10/27/2018 11:15a Main Office Alphonso Pal D51.9 Vitamin B12 M.D. deficiency anemia, unspecified E55.9 Vitamin D deficiency, unspecified E11.9 Type 2 diabetes mellitus without complications M51.36 Other intervertebral disc degeneration, lumbar region M43.17 Spondylolisthesis, lumbosacral region M54.2 Cervicalgia M25.519 Pain in unspecified shoulder Office Visit 09/24/2018 11:30a Main Office Demarco M51.36 Other intervertebral Macy Werner disc degeneration, lumbar region M43.17 Spondylolisthesis, lumbosacral region H92.02 Otalgia, left ear H69.92 Unspecified Eustachian tube disorder, left ear Office Visit 08/11/2018 11:20a Main Office Zita Santillan, E11.65 Type 2 diabetes P.A. mellitus with hyperglycemia J06.9 Acute upper respiratory infection, unspecified J20.9 Acute bronchitis, unspecified M54.2 Cervicalgia G47.33 Obstructive sleep apnea (adult) (pediatric) E66.9 Obesity, unspecified Assessments Date Code Description Provider 02/02/2019 E11.9 Type 2 diabetes mellitus without Alphonso Pal M.D. complications 02/02/2019 E55.9 Vitamin D deficiency, unspecified Alphonso Pal M.D. 02/02/2019 D51.9 Vitamin B12 deficiency anemia, unspecified Alphonso Pal M.D. 02/02/2019 F34.1 Dysthymic disorder Alphonso Pal M.D. 02/02/2019 M43.17 Spondylolisthesis, lumbosacral region Alphonso Pal M.D. 02/02/2019 M51.36 Other intervertebral disc degeneration, Alphonso Pal M.D. lumbar region 02/02/2019 K21.9 Gastro-esophageal reflux disease without Alphonso Pal M.D. esophagitis 02/02/2019 I10 Essential (primary) hypertension Alphonso Pal M.D. 11/25/2018 M51.36 Other intervertebral disc degeneration, Alphonso Pal M.D. lumbar region 11/25/2018 D51.9 Vitamin B12 deficiency anemia, unspecified Nurse's Schedule 11/25/2018 M43.17 Spondylolisthesis, lumbosacral region Alphonso Pal M.D. 11/25/2018 F34.1 Dysthymic disorder Alphonso Pal M.D. 11/25/2018 G56.03 Carpal tunnel syndrome, bilateral upper Alphonso Pal M.D. limbs 11/25/2018 E55.9 Vitamin D deficiency, unspecified Alphonso Pal M.D. 11/25/2018 D51.9 Vitamin B12 deficiency anemia, unspecified Alphonso Pal M.D. 10/27/2018 D51.9 Vitamin B12 deficiency anemia, unspecified Alphonso Pal M.D. 10/27/2018 E55.9 Vitamin D deficiency, unspecified Alphonso Pal M.D. 10/27/2018 E11.9 Type 2 diabetes mellitus without Alphonso Pal M.D. complications 10/27/2018 M51.36 Other intervertebral disc degeneration, Alphonso Pal M.D. lumbar region 10/27/2018 M43.17 Spondylolisthesis, lumbosacral region Alphonso Pal M.D. 10/27/2018 M54.2 Cervicalgia Alphonso Pal M.D. 10/27/2018 M25.519 Pain in unspecified shoulder Alphonso Pal M.D. 09/24/2018 M51.36 Other intervertebral disc degeneration, Alphonso Pal M.D. lumbar region 09/24/2018 M43.17 Spondylolisthesis, lumbosacral region Alphonso Pal M.D. 09/24/2018 H92.02 Otalgia, left ear Alphonso Pal M.D. 09/24/2018 H69.92 Unspecified Eustachian tube disorder, left Alphonso Pal M.D. ear 09/22/2018 D51.9 Vitamin B12 deficiency anemia, unspecified Nurse's Schedule 08/25/2018 D51.9 Vitamin B12 deficiency anemia, unspecified Nurse's Schedule 08/14/2018 D51.9 Vitamin B12 deficiency anemia, unspecified Nurse's Schedule 08/11/2018 E11.65 Type 2 diabetes mellitus with hyperglycemia Zita Santillan , P.A. 08/11/2018 J06.9 Acute upper respiratory infection, Zita Santillan, P.A. unspecified 08/11/2018 J20.9 Acute bronchitis, unspecified Zita Kyburz, P.A. 08/11/2018 M54.2 Cervicalgia Zita Santillan, P.A. 08/11/2018 G47.33 Obstructive sleep apnea (adult) (pediatric) Zita Santillan , P.A. 08/11/2018 E66.9 Obesity, unspecified Zita Malonele, P.A. 08/07/2018 D51.9 Vitamin B12 deficiency anemia, unspecified Nurse's Schedule Plan of Treatment Future Appointment(s):06/09/2019 10:00 am - Alphonso Pal M.D. at Main [id number]/23/2018 - Zita Santillan, P.A.E11.65 Type 2 diabetes mellitus with hyperglycemiaComments:reviewed why glu tends to be higher in the morningso far doing well with control improving. Continue all the aboveFollow up:cont current treatment discussed trying to have a protein stack w small amt of carb as evening snack and see if this helps a.m. blood vfrodaL97.0 Urinary tract infection, site not specifiedFollow up:Urine was clean today Functional Status Description No Information Available Mental Status Description No Information Available Referrals Description No Information Available
--- OUTSIDE RECORDS SUMMARY | 2019-02-07 09:50 | XMS REPORT | Continuity of Care Document ---
:1970 External Reference #:[id number] Author Name Jeb Chavez M.D. (transmitted by agent of provider Shanon aCsas) Address [address] [place] [address] Care Team Providers Name Role Phone Alphonso Pal MD - Internal Care Team Information Plant Custodian Medicine Problems Active Problems Provider Date Obstructive sleep apnea syndrome Elizabeth Muro DNP, RN, BRIDGE ATTACHER-BC Onset: Body mass index 40+ - severely Elizabeth Muro DNP, RN, BRIDGE ATTACHER-BC Onset: 2017 obese Social History Type Date Description Comments Sex Unknown Tobacco Use Start: Unknown Light tobacco smoker (10 or fewer cigarettes/day) Smoking Status Reviewed: 02/02/19 Light tobacco smoker (10 or fewer cigarettes/day) ETOH Use Denies alcohol use Recreational Drug Use Denies Drug Use Tobacco Use Start: Unknown Light tobacco smoker (10 or fewer cigarettes/day) Exercise Type/Frequency Exercises sporadically Exercise Type/Frequency Walks sporadically Weather permitting Allergies, Adverse Reactions, Alerts Active Allergies Reaction Severity Comments Date Penicillin 12/06/2014 Ceclor 12/06/2014 Erythromycin 12/06/2014 Sulfa Antibiotics 12/06/2014 Lyrica 12/06/2014 Pataday 12/06/2014 Bee Stings 12/06/2014 Latex 07/25/2016 Inactive Allergies Tramadol 04/28/2018 Medications Active Medications SIG Qnty Indications Ordering Date Provider Pennsaid 2 pumps twice daily 112gm Jeb Chavez, 02/02/2019 2% Solution as needed to M.D. painful knees Cyanocobalamin sq once monthly due 75ml Jeb Chavez, 07/28/2018 1000mcg/ML to a low b12; M.D. Solution please provide appropriate needle and syringes for injection Vitamin D take 1 capsule by 4caps Jeb Chavez, 07/26/2018 (Ergocalciferol) mouth once weekly M.D. [id number] Capsules Gabapentin 1 po qam, 3 po qhs Unknown 11/14/2015 300mg Capsules Esomeprazole Sodium 1 by mouth every Unknown 12/05/2014 40mg day Solution Rec Losartan Potassium 1 by mouth every Unknown 12/05/2014 50mg day Tablets Atorvastatin Calcium 1 by mouth every Unknown 12/05/2014 40mg day Tablets Epipen 2-Phillip use as directed Unknown 12/05/2014 0.3mg/0.3ML Solution Auto-Inject Proair HFA 2 puffs by mouth Unknown 12/05/2014 108(90Base) every 4 hours as mcg/Act Aerosol needed Tramadol HCL 1 bid Unknown 50mg Tablets Metformin HCL 1 by mouth twice a Unknown 500mg day Tablets Qvar Silcoff, 80mcg/Act Aerosol MD Alphonso Ipratropium Silcoff, [place]/Albuterol MD Alphonso Sulfate 0.5-2.5(3)mg/3ML Solution Esomeprazole Magnesium Take One Capsule By Unknown Mouth Every Day For 40mg Capsules DR Acid Reflux Clonazepam Silcoff, 0.5mg Tablets MD Alphonso Escitalopram Oxalate Silcoff, 10mg MD Alphonso Tablets Mirtazapine Silcoff, 15mg Tablets MD Alphonso Bupropion HCL ER (XL) 1 by mouth every Unknown day 300mg Tablets ER 24HR Singulair 1 by mouth every Unknown 10mg Tablets day Proventil HFA 2 puffs by mouth Unknown 108(90Base) every 4 hours mcg/Act Aerosol History Medications [place] one tab by mouth 15tabs Caprcie Sarabia, 11/06/2018 - 5-325mg every 4-6 hours as M.D. 02/02/2019 Tablets needed for post operative pain For use after surgery Medications Administered in Office Medication SIG Qnty Indications Ordering Provider Date Depomedrol 40MG Caprice Sarabia M.D. 10/16/2017 Injection Depomedrol 40MG Caprice Sarabia M.D. 09/12/2017 Injection Immunizations CPT Code Status Date Vaccine Lot # [id number] Given 12/06/2014 Fluvirin Im 3Yrs And Older Vital Signs Date Vital Result Comment 02/02/2019 10:36am Height 60 inches 5'0" Weight 251.38 lb Heart Rate 88 /min BP Systolic Sitting 130 mmHg BP Diastolic Sitting 84 mmHg Pain Level 5 O2 % BldC Oximetry 93 % BMI (Body Mass Index) 49.1 kg/m2 11/27/2018 11:21am Height 60 inches 5'0" Weight 261.00 lb Heart Rate 84 /min BP Systolic 130 mmHg BP Diastolic 82 mmHg Respiratory Rate 18 /min Body Temperature 97.8 F Pain Level 0 BMI (Body Mass Index) 51.0 kg/m2 Results Test Date Facility Test Result H/L Range Note Laboratory test 11/18/2018 [facility] Care 99 mg/dL Normal 70-[address] [place] [id number] [phone] 1 Fall Intern: [id number] Procedures Date Code Description Status 11/18/2018 80240 Carpal Tunnel Release Completed 11/18/2018 35975 Carpal Tunnel Release Completed 09/09/2018 80568 Nerve Conduction 03-04 Studies Completed 09/09/2018 79185 Needle Electromyography Complete, Five Or More Muscles Completed Studied Medical Devices Description No Information Available Encounters Type Date Location Provider Dx Diagnosis Office Visit 10/29/2018 [facility] Caprice Sarabia G56.03 Carpal tunnel 10:30a Of Jam Cavazos syndrome, bilateral upper limbs Office Visit 08/26/2018 Rheumatology Jeb Chavez M54.2 Cervicalgia 10:40a Services Of Mary Cavazos R20.8 Other disturbances of skin sensation M18.11 Unil primary osteoarth of first carpometacarp joint, r hand G62.9 Polyneuropathy, unspecified E55.9 Vitamin D deficiency, unspecified E53.8 Deficiency of other specified B group vitamins Office Visit 08/14/2018 Pulmonology And Elizabeth G47.33 Obstructive sleep 9:15a Sleep Services Of DEREK Muro, RN, apnea (adult) Mary BRIDGE ATTACHER-BC (pediatric) Z68.42 Body mass index (BMI) 45.0-49.9, adult Assessments Date Code Description Provider 02/02/2019 M17.9 Osteoarthritis of knee, unspecified Jeb Chavez M.D. 02/02/2019 R70.0 Elevated erythrocyte sedimentation Jeb Chavez M.D. rate 02/02/2019 L40.9 Psoriasis, unspecified Jeb Chavez M.D. 02/02/2019 D51.9 Vitamin B12 deficiency anemia, Jeb Chavez M.D. unspecified 02/02/2019 Z79.1 termite control servicer (current) use of Jeb Chavez M.D. non-steroidal anti-inflammatories (Nsaid) 11/27/2018 G56.02 Carpal tunnel syndrome, left upper Soha Bitting, RPA-C limb 11/27/2018 Z48.02 Encounter for removal of sutures Soha Bitting, [facility] 11/18/2018 G56.02 Carpal tunnel syndrome, left upper Soha Bitting, [facility] limb 11/18/2018 G56.02 Carpal tunnel syndrome, left upper Caprice Sarabia M.D. limb 10/29/2018 G56.03 Carpal tunnel syndrome, bilateral Caprice Sarabia M.D. upper limbs 09/09/2018 R20.8 Other disturbances of skin sensation Jorje Mcpherson MD 08/26/2018 M54.2 Cervicalgia Jeb Chavez M.D. 08/26/2018 R20.8 Other disturbances of skin sensation Jeb Chavez M.D. 08/26/2018 M18.11 Unilateral primary osteoarthritis of Jeb Chavez M.D. first carpometacarpal j 08/26/2018 G62.9 Polyneuropathy, unspecified Jeb Chavez M.D. 08/26/2018 E55.9 Vitamin D deficiency, unspecified Jeb Chavez M.D. 08/26/2018 E53.8 Deficiency of other specified B group Jeb Chavez M.D. vitamins 08/14/2018 G47.33 Obstructive sleep apnea (adult) Elizabeth Muro DNP, RN, (pediatric) BRIDGE ATTACHER-BC 08/14/2018 Z68.42 Body mass index (BMI) 45.0-49.9, Elizabeth Muro DNP, RN, adult BRIDGE ATTACHER- Plan of Treatment Future Appointment(s):04/06/2019 11:20 am - Jeb Chavez M.D. at [facility]02/10/2019 10:30 am - Elizabeth Muro DNP, RN, BRIDGE ATTACHER-BC at [facility]02/02/2019 - Jeb Chavez M.D.M17.9 Osteoarthritis of knee, unspecifiedComments:Screen for myositis given joint and muscular [id number] Elevated erythrocyte sedimentation rateL40.9 Psoriasis , unspecifiedReferral:Shashank Prajapati MD, NmvxumcrucyC14.9 Vitamin B12 deficiency anemia, fwxagwpurteO48.1 termite control servicer (current) use of non-steroidal anti-inflammatories (Nsaid)Follow up:Follow up in 2 or 3 months or sooner if needed Functional Status Functional Condition Comment Date Status Glasses Active Quad cane is used with the right hand Active Mental Status Description No Information Available Referrals Refer to Reason for Referral Status Appt Date Shashank Prajapati MD Please evaluate for psoriasis on the feet and Created 00/ hands; history of an inflammatory arthropathy [address], [place] [address] [phone]
[2019-02-07 09:57] VITALS: BP 143/83
--- NOTE | 2019-02-07 10:37 | UC ---
Skin Complaint HPI - HPI Summary HPI Summary: Patient presents to urgent care with 2 complaints. One, patient states this morning when she woke up her eyes report right. Patient states the left one had some slight yellow crust. Patient states he feel gritty and site. No vision problems. No drainage to the day. Both eyes are red and itchy. Patient does take Singulair daily for her allergies. Patient states she did not take it yet today. Patient has not been anybody with similar symptoms. Patient denies sinus sinus congestion, sore throat, or ear pain. Patient does not wear corrective lenses. Patient does not report a foreign body sensation or eye pain. Discussed itching 2) patient reports she has blisters on her hands and feet for over a month. Patient states initially started on her right hand but now they're on all 4 extremity. Patient's been seen by her primary who feels that this is a dermatitis. Patient was referred to dermatology and has appointment but not until March 12. Patient's been tramadol for pain. Patient has not taken anything else. Patient was wondering my opinion of these wounds. No open or draining. No redness. No fevers or chills. She also similar. Patient does not have a history of cold similar sores or vaginal herpes. Patient's medications reviewed this visit Tetanus UTD - History of Current Complaint Chief Complaint: UCSkin Time Seen by Provider: 02/07/19 10:28 Stated Complaint: BLISTERS ON HANDS AND FEET Hx Obtained From: Patient Hx Last Menstrual Period: 1 MONTH AGO Pain Intensity: 6 - Allergy/Home Medications Allergies/Adverse Reactions: Allergies Allergy/AdvReac Type Severity Reaction Status Date / Time bee venom protein (honey bee) Allergy Severe Difficulty Verified 02/07/19 09:58 Breathing latex Allergy Severe Rash Verified 02/07/19 09:58 pregabalin [From Lyrica] Allergy Intermediate Hives Verified 02/07/19 09:58 sulfamethoxazole Allergy Intermediate Hives Verified 02/07/19 09:58 [From Bactrim] trimethoprim [From Bactrim] Allergy Intermediate Hives Verified 02/07/19 09:58 cefaclor [From Ceclor] Allergy Rash Verified 02/07/19 09:58 erythromycin base AdvReac Severe GI Upset Verified 02/07/19 09:58 Penicillins AdvReac Mild gives her Verified 02/07/19 09:58 "the shakes" pataday Allergy Severe burning Uncoded 02/07/19 09:58 and swelling eyes PMH/Surg Hx/FS Hx/Imm Hx Previously Healthy: No Endocrine History: Diabetes, Dyslipidemia Cardiovascular History: Hypertension - Surgical History Surgical History: Yes Surgery Procedure, Year, and Place: left trigger thumb release. left thumb joint replacement - Family History Known Family History: Positive: Hypertension, Non-Contributory Negative: Cardiac Disease, Diabetes - Social History Occupation: Unemployed Lives: With Family Alcohol Use: None Substance Use Type: None Smoking Status (MU): Current Every Day Smoker Type: Cigarettes Amount Used/How Often: 10 cigarettes approx 30 years Have You Smoked in the Last Year: Yes When Did the Patient Quit Smoking/Using Tobacco: 08/13/2016 Household Exposure Type: Cigarettes Review of Systems All Other Systems Reviewed And Are Negative: Yes Constitutional: Positive: Negative Skin: Positive: Other Eyes: Positive: Eye Redness ENT: Positive: Negative Respiratory: Positive: Negative Cardiovascular: Positive: Negative Gastrointestinal: Positive: Negative Is Patient Immunocompromised?: No Physical Exam - Summary Physical Exam Summary: Vital Signs Reviewed: Yes A+Ox3, no distress Eyes: b/l injection, membranes inflammed, scant yellow discharge left, NEL, EOM intact and full no photophobia, ENT: Hearing grossly normal TM x 2 clear, mild nasal congestion, mmoist, uvula midline, no exudate, no erythema Neck: Positive: Supple Respiratory: Positive: No respiratory distress, No accessory muscle use + CTA throughout no w/r Cardiovascular: RRR nl s1, s2 no m/r CBT <2 sec abd soft + BS nt/nd no guarding, no distension Musculoskeletal Exam: BONE x 4 without difficulty Strength Intact, ROM Intact Neurological: Positive: Alert, + sensation throughout Psychological: Positive: Normal Response To field nurse Skin: Positive: pt with several scabbed lesions, small multiple blisters bilateral hand and feet. none erythema, induration, drainage, fluctuant mild TTP right index pt with multiple blisters distal index right hand. most lesions on lateral edges of fingers. Triage Information Reviewed: Yes Vital Signs: Initial Vital Signs Temp 97.6 F 02/07/19 09:52 Pulse 81 02/07/19 09:52 Resp 18 02/07/19 09:52 BP 143/83 02/07/19 09:52 Pulse Ox 96 02/07/19 09:52 Course/Dx - Course Course Of Treatment: Patient presents to urgent care with 2 complaints. One patient has bilateral eye injection with little bit of discharge from her left eye. Patient does have injected eyes with findings as with conjunctivitis versus allergic reaction. Patient is a diabetic as well as start on antibiotic drops. Cool compresses, return precautions. Patient's sees Dr. Castillo for up encouraged to follow-up with his symptoms progress or chills or questions. Regarding blisters initial consideration that this could be herpetic with low. However upon further review lesions are all 4 extremities and somewhat disseminate. This may be paretic eczema. Recommend patient contact the physician referral center to expedite her appointment with dermatology. Recommend she add Tylenol to her regimen of Tramadol for pain. If symptoms persist or she is also complains recommended to emergency department. Patient states understanding and agreement with plan. - Diagnoses Provider Diagnosis: Conjunctivitis, Dyshidrotic dermatitis Discharge - Sign-Out/Discharge Documenting (check all that apply): Patient Departure All imaging exams completed and their final reports reviewed: No Studies - Discharge Plan Condition: Stable Disposition: HOME Prescriptions: Ciprofloxacin 0.3% OPTH.KATIE* [Cipro 0.3% Opth*] 2 drop BOTH EYES Q8HR #1 btl Patient Education Materials: Dyshidrotic Eczema (ED), Conjunctivitis (ED) Referrals: [facility] [Outside] Alphonso Pal MD [Primary Care Provider] - Additional Instructions: For your eyes: Use drops exactly as prescribed in each eyes. Continue to use allergy medication a prescribed Use a luke warm soaking wet cloth to moisten any dried secretions on your eyes If you have worsening symptoms, fevers, vision changes it it is recommended you contact your pharmacy specialist for follow-up For your blisters - continue to take Tramadol as prescribed. Okay to take Tylenol every 6 hours Contact the physician referral center on Saturday for assistance in getting an appointment sooner - if you are willing to have an appointment in [place] or [place] - make sure you let the physician referral center know this If you have fevers, difficulty breathing, chest pain or any other concerns it is recommended you go to the emergency department - Billing Disposition and Condition Condition: STABLE Disposition: Home
== END 2019-02-07 11:05 | disposition home or self-care (01) ==
LOC: UCCORT 09:41
DX: H10.9 Unspecified conjunctivitis (principal); L30.1 Dyshidrosis [pompholyx]; E11.9 Type 2 diabetes mellitus without complications; I10 Essential (primary) hypertension; F17.210 Nicotine dependence, cigarettes, uncomplicated
CPT/HCPCS: 99212; G0463

== ENCOUNTER 2019-03-07 18:00 | Emergency (ER) | payer OTHER ==
[2019-03-07] MEDS ORDERED: predniSONE TAB* 20 MG PO ONE (18:06)
[2019-03-07] MEDS ORDERED: diPHENhydraMINE PO* 50 MG PO ONE ×2 (18:06→19:10)
[2019-03-07] MEDS ORDERED: Ondansetron ODT TAB* 4 MG PO ONE (18:07)
[2019-03-07 18:10] VITALS: BP 139/66
--- NOTE | 2019-03-07 18:26 | UC ---
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 Negative: Nausea, Vomiting, Numbness, Thirst, Diaphoresis, Weakness, Pallor, Shivering, Difficulty Breathing , Fever, Chills, Cough, Wheezing, Chest Pain, Hoarseness, Throat Tightening, Rash, Abdominal Pain, Lightheadedness, Syncope, Drainage, Bruising, Red Streaks , Joint Swelling Related History: Insect Bite/Sting - Allergy/Home Medications Allergies/Adverse Reactions: Allergies Allergy/AdvReac Type Severity Reaction Status Date / Time bee venom protein (honey bee) Allergy Severe Difficulty Verified 03/07/19 18:10 Breathing latex Allergy Severe Rash Verified 03/07/19 18:10 pregabalin [From Lyrica] Allergy Intermediate Hives Verified 03/07/19 18:10 sulfamethoxazole Allergy Intermediate Hives Verified 03/07/19 18:10 [From Bactrim] trimethoprim [From Bactrim] Allergy Intermediate Hives Verified 03/07/19 18:10 cefaclor [From Ceclor] Allergy Rash Verified 03/07/19 18:10 erythromycin base AdvReac Severe GI Upset Verified 03/07/19 18:10 Penicillins AdvReac Mild gives her Verified 03/07/19 18:10 "the shakes" pataday Allergy Severe burning Uncoded 03/07/19 18:10 and swelling eyes PMH/Surg Hx/FS Hx/Imm Hx Previously Healthy: No Endocrine History: Diabetes Cardiovascular History: Hypertension Psychological History: Other Other Psychological History: neuropathy - Surgical History Surgical History: Yes Surgery Procedure, Year, and Place: left trigger thumb release. left thumb joint replacement - Family History Known Family History: Positive: Hypertension, Non-Contributory Negative: Cardiac Disease, Diabetes - Social History Alcohol Use: None Substance Use Type: None Smoking Status (MU): Current Every Day Smoker Type: Cigarettes Amount Used/How Often: 10 cigarettes approx 30 years Have You Smoked in the Last Year: Yes When Did the Patient Quit Smoking/Using Tobacco: 08/13/2016 Household Exposure Type: Cigarettes Review of Systems All Other Systems Reviewed And Are Negative: Yes Constitutional: Positive: Negative Skin: Positive: Negative Eyes: Positive: Negative ENT: Positive: Negative Respiratory: Positive: Negative Cardiovascular: Positive: Negative Gastrointestinal: Positive: Negative Genitourinary: Positive: Negative Motor: Positive: Negative Neurovascular: Positive: Negative Musculoskeletal: Positive: Negative Neurological: Positive: Negative Psychological: Positive: Negative Physical Exam Triage Information Reviewed: Yes Appearance: Well-Appearing, No Pain Distress, Well-Nourished Vital Signs Reviewed: Yes Eyes: Positive: Conjunctiva Clear ENT: Positive: Hearing grossly normal. Negative: Nasal congestion, Tonsillar exudate, Trismus, Muffled voice, Hoarse voice Dental: Negative: Dental Fracture @ Neck: Positive: Supple Respiratory: Positive: Lungs clear, Normal breath sounds, No respiratory distress, No accessory muscle use Cardiovascular: Positive: RRR, No Murmur Musculoskeletal: Positive: Edema @ - dorsum left wrist Neurological: Positive: Alert Psychological Exam: Normal Skin Exam: Other - see image Images Front/Back of Body, Lg ([place]): 1 - sting, red and swollen Re-Evaluation - Re-Evaluation First Eval Re-Evaluation Time: 18:32 Change: Improved - patient chatting on cell phone. feels improved . no new symptoms. will continue to observe. Second Eval Change: Improved - no new symptoms Course/Dx - Diagnoses Provider Diagnosis: Local reaction to bee sting Discharge ED - Sign-Out/Discharge Documenting (check all that apply): Patient Departure All imaging exams completed and their final reports reviewed: No Studies - Discharge Plan Condition: Stable Disposition: HOME Prescriptions: predniSONE [Deltasone 20 MG TAB] 40 mg PO DAILY #4 tab Patient Education Materials: Insect Bite or Sting (ED) Referrals: Alphonso Pal MD [Primary Care Provider] - 3 Days (if not better) Additional Instructions: take benadryl 50 mg every 6 hours as needed for itching tylenol elevation ice - Billing Disposition and Condition Condition: STABLE Disposition: Home
--- OUTSIDE RECORDS SUMMARY | 2019-03-07 18:31 | XMS REPORT | Continuity of Care Document ---
:1970 External Reference #:[id number] Author Name Elizabeth Muro DNP, RN, PEDIATRICS TEACHER-BC (transmitted by agent of provider Ruth Duenas) Address [address], [address] [place] [id number] Care Team Providers Name Role Phone Alphonso Pal MD - Internal Care Team Information Bag [facility] Medicine Problems Active Problems Provider Date Obstructive sleep apnea syndrome Elizabeth Muro DNP, RN, PEDIATRICS TEACHER-BC Onset: Body mass index 40+ - severely Elizabeth Muro DNP, RN, PEDIATRICS TEACHER-BC Onset: 2017 obese Social History Type Date Description Comments Sex Unknown Tobacco Use Start: Unknown Light tobacco smoker (10 or fewer cigarettes/day) Smoking Status Reviewed: 02/10/19 Light tobacco smoker (10 or fewer cigarettes/day) [...] Chavez, 07/26/2018 (Ergocalciferol) mouth once weekly M.D. [id number] Capsules Gabapentin 1 po qam, 3 po [...] Silcoff, 80mcg/Act Aerosol MD Alphonso Ipratropium Silcoff, [place]/Albuterol MD Alphonso Sulfate 0.5-2.5(3)mg/3ML Solution Esomeprazole Magnesium [...] every 4 hours mcg/Act Aerosol History Medications [place] one tab by mouth 15tabs Caprice Sarabia, 11/06/2018 - 5-325mg every 4-6 hours [...] Older Vital Signs Date Vital Result Comment 02/10/2019 1:58pm Height 60 inches 5'0" Weight 255.00 lb reported Heart Rate 92 /min BP Systolic Sitting 126 mmHg BP Diastolic Sitting 90 mmHg O2 % BldC Oximetry 100 % BMI (Body Mass Index) 49.8 kg/m2 02/02/2019 10:36am Height 60 inches 5'0" Weight 251.38 lb Heart Rate 88 /min BP Systolic Sitting 130 mmHg BP Diastolic Sitting 84 mmHg Pain Level 5 O2 % BldC Oximetry 93 % BMI (Body Mass Index) 49.1 kg/m2 Results Test Date Facility Test Result H/L Range Note Laboratory test 02/02/2019 [facility] C Reactive 5.57 mg/L Normal <8.01 [address] [place] [address] [phone] Uric Acid 6.4 mg/dL Normal 2.3-6.6 2 Erythrocyte Sed Rate 25 mm/Hr High 0-19 3 Vitamin B12 02/02/2019 [facility] Vitamin B12 271 pg/mL Normal 180-914 [address] [place] [address] [phone] Folic Acid (Folate) 9.81 ng/mL >3.99 5 Laboratory test 02/02/2019 [facility] Methylmalonic Acid 0.20 <=0.40 [address] Mma nmol/[place] [address] [phone] Parietal Cell AB Igg <10.0 U 7 Intrinsic Factor Blocking AB Negative Negative 8 CBC Auto 02/02/2019 [facility] White Blood 8.7 10^3/uL Normal 3.5-10.[address] [place] [address] [phone] Red Blood Count 4.64 10^6/uL Normal 3.70-4.87 Hemoglobin 14.7 g/dL Normal 12.0-16.0 Hematocrit 43 % Normal 35-47 Mean Corpuscular Volume 93 fL Normal 80-97 Mean Corpuscular Hemoglobin 32 pg High 27-31 Mean Corpuscular HGB Conc 34 g/dL Normal 31-36 Red Cell Distribution Width 13 % Normal 10-15 Platelet Count 266 10^3/uL Normal 150-450 Mean Platelet Volume 8.8 fL Normal 7.4-10.4 Abs Neutrophils 4.6 10^3/uL Normal 1.5-7.7 Abs Lymphocytes 3.3 10^3/uL Normal 1.0-4.8 Abs Monocytes 0.6 10^3/uL Normal 0-0.8 Abs Eosinophils 0.2 10^3/uL Normal 0-0.6 Abs Basophils 0.1 10^3/uL Normal 0-0.2 Abs Nucleated RBC 0.0 10^3/uL Granulocyte % 52.5 % Lymphocyte % 38.3 % Monocyte % 6.4 % Eosinophil % 2.1 % Basophil % 0.7 % Nucleated Red Blood Cells % 0.1 Comp Metabolic 02/02/2019 [facility] Sodium 140 mmol/L Normal 135-[address] [place] [address] [phone] Potassium 4.2 mmol/L Normal 3.5-5.0 Chloride 107 mmol/L Normal 101-111 Co2 Carbon Dioxide 25 mmol/L Normal 22-32 Anion Gap 8 mmol/L Normal 2-11 Glucose 107 mg/dL High 70-100 Blood Urea Nitrogen 7 mg/dL Normal 6-24 Creatinine 0.86 mg/dL Normal 0.51-0.95 BUN/Creatinine Ratio 8.1 Normal 8-20 Calcium 9.4 mg/dL Normal 8.6-10.3 Total Protein 6.7 g/dL Normal 6.4-8.9 Albumin 4.2 g/dL Normal 3.2-5.2 Globulin 2.5 g/dL Normal 2-4 Albumin/Globulin Ratio 1.7 Normal 1-3 Total Bilirubin 0.40 mg/dL Normal 0.2-1.0 Alkaline Phosphatase 70 U/L Normal 34-104 Alt 24 U/L Normal 7-52 Ast 15 U/L Normal 13-39 Egfr Non- 70.4 >60 Egfr 85.2 >60 9 Laboratory test 02/02/2019 [facility] Creatine 72 U/L Normal 10-223 [address] Kinase(CK) [place] [address] [phone] Laboratory test 11/18/2018 [facility] Point of Care 99 mg/dL Normal 70-100 [address] [place] [address] [phone] Please check labs today 2 Please check labs today 3 Please check labs today 4 Normal Range 180 to 914 Indeterminate Range 145 to 180 Deficient Range <145 5 Please check labs today 6 ADDITIONAL INFORMATION This test was developed and its performance characteristics determined by [facility] in a manner consistent with CLIA requirements. This test has not been cleared or approved by the U.S. Food and Drug Administration. Test Performed by: [facility] - [address] [address] 7 REFERENCE VALUE <=20.0 (Negative) Test Performed by: [facility] [place] [address] 8 Positive in 50% of persons with pernicious anemia. Test Performed by: [place] [address] 9 Because ethnic data is not always readily available, this report includes an eGFR for both -Americans and non- Americans. The National Kidney Disease Education Program (NKDEP) does not endorse the use of the MDRD equation for patients that are not between the ages of 18 and 70, are , have extremes of body size, muscle mass, or nutritional status, or are non- or non-. According to the National Kidney Foundation, irrespective of diagnosis, the stage of the disease is based on the level of kidney function: Stage Description GFR(mL/min/1.73 m(2)) 1 Kidney damage with normal or decreased GFR 90 2 Kidney damage with mild decrease in GFR 60-89 3 Moderate decrease in GFR 30-59 4 Severe decrease in GFR 15-29 5 Kidney failure <15 (or dialysis) 10 Please check labs today 11 Apprentice Plumber: [id number] Procedures Date Code Description Status 11/18/2018 69037 Carpal Tunnel Release Completed 11/18/2018 53550 Carpal Tunnel Release Completed 09/09/2018 98693 Nerve Conduction 03-04 Studies Completed 09/09/2018 41672 Needle Electromyography Complete, Five Or More Muscles Completed Studied Medical Devices Description No Information Available Encounters Type Date Location Provider Dx Diagnosis Office Visit 02/02/2019 Rheumatology Jeb Chavez, M17.9 Osteoarthritis of 10:40a [facility] Cavazos knee, unspecified R70.0 Elevated erythrocyte sedimentation rate L40.9 Psoriasis, unspecified D51.9 Vitamin B12 deficiency anemia, unspecified Z79.1 detention (current) use of non-steroidal non-inflam (Nsaid) Office Visit 10/29/2018 Orthopedic Caprice G56.03 Carpal tunnel 10:30a Services [facility] Jam Sarabia M.D. syndrome, bilateral upper limbs Office Visit 08/26/2018 Rheumatology Jeb Chavez, M54.2 Cervicalgia 10:40a [facility] R20.8 Other disturbances of skin sensation M18.11 Unil primary osteoarth of first carpometacarp joint, r hand G62.9 Polyneuropathy, unspecified E55.9 Vitamin D deficiency, unspecified E53.8 Deficiency of other specified B group vitamins Office Visit 08/14/2018 Pulmonology And Elizabeth G47.33 Obstructive sleep 9:15a Sleep [facility] DEREK Muro RN, apnea (adult) [facility] (pediatric) Z68.42 Body mass index (BMI) 45.0-49.9, adult Assessments Date Code Description Provider 02/10/2019 G47.33 Obstructive sleep apnea (adult) lEizabeth Muro DNP RN, (pediatric) [facility] 02/02/2019 M17.9 Osteoarthritis of knee, unspecified Jeb Chavez M.D. 02/02/2019 R70.0 Elevated erythrocyte sedimentation Jeb Chavez M.D. rate 02/02/2019 L40.9 Psoriasis, unspecified Jeb Chavez M.D. 02/02/2019 D51.9 Vitamin B12 deficiency anemia, Jeb Chavez M.D. unspecified 02/02/2019 Z79.1 detention (current) use of Jeb Chavez M.D. non-steroidal anti-inflammatories (Nsaid) 11/27/2018 G56.02 Carpal tunnel syndrome, left upper Soha Bitting, RPA-C limb 11/27/2018 Z48.02 Encounter for removal of sutures Soha Bitting, RPA-C 11/18/2018 G56.02 Carpal tunnel syndrome, left upper Soha Bitting, RPA-C limb 11/18/2018 G56.02 Carpal tunnel syndrome, left [...] apnea (adult) Elizabeth Muro DNP, RN, (pediatric) PEDIATRICS TEACHER-BC 08/14/2018 Z68.42 Body mass index (BMI) 45.0-49.9, Elizabeth Muro DNP, RN, adult [facility] Plan of Treatment Future Appointment(s):02/09/2020 11:15 am - Elizabeth Muro DNP, RN, PEDIATRICS TEACHER-BC at [facility]02/12/2019 2:20 pm - Shashank Prajapati MD at [facility] Llarthncfbx57/14/2019 11:20 am - Jeb Chavez M.D. at [facility]02/10/2019 - Elizabeth Muro DNP, RN, PEDIATRICS TEACHER-BCG47.33 Obstructive sleep apnea (adult) (pediatric)Comments:Sleep Apnea - mild 11.4/hour Lee oxygen 79%. titration CPAP 03/10/15 wt 211On CPAP 10-15 cm AHI 0.9/hour, normalFollow up:1 yearRecommendations:Continue PAP device, Benefitting and compliant with treatment. Cleaning Wipe off mask daily (baby wipe-no scent, or warm water) Clean mask, tubing, filter, and water chamber weekly in mild no scent dish soap and water. Hang to dry. If you have any sleepiness while driving you MUST avoid operating a vehicle or machinery. If you have difficulty with your equipment, or need to replace your mask or hoses, please contact your homecare agency. A weight change of 20 pounds or more may have an effect onyour equipment; if you are experiencing problems please call for an appointment. BMI 49, avoid weight gain If you have any further questions, please call the [facility] at [phone]. Functional Status Functional Condition Comment Date Status Glasses Active Quad cane is used with the right hand Active Mental Status Description No Information Available Referrals Refer to Reason for Referral Status Appt Date Shashank Prajapati MD Please evaluate for psoriasis on the feet and Sent 2018 hands; history of an inflammatory arthropathy [address] [facility], [place] [address] [phone]
--- OUTSIDE RECORDS SUMMARY | 2019-03-07 18:31 | XMS REPORT | Continuity of Care Document ---
:1970 External Reference #:[id number] Author Name Alphonso Pal M.D. Address [address] [facility] [address] [place] [address] Care Team Providers Name Role Phone HCP given Care Team Information Business Support Professional Unavailable Je Castillo MD [facility] - Care Team Information Business Support Professional [phone] Ophthalmology [facility]. - Durable Care Team Information Business Support Professional Medical Devices & Medical Supplies Cristino Galeas MD - Orthopaedic Care Team Information Business Support Professional [phone] [facility] - Pain Medicine Care Team Information Business Support Professional [phone] Sleep Clinic - Sleep Disorder Care Team Information Business Support Professional [phone] Diagnostic Caprice Sarabia MD - Orthopaedic Care Team Information Business Support Professional Surgery Je Wilburn MD - Internal Care Team Information Business Support Professional [phone] Medicine EvangelistDoris MD - Physical Care Team Information Business Support Professional Medicine & Rehabilitation Jeb Chavez M.D. - Rheumatology Care Team Information Business Support Professional Problems Active Problems Provider Date Pure hypercholesterolemia [...] Medications SIG Qnty Indications Ordering Date Provider Cyanocobalamin inject 1ml 30ml D51.9 Alexandracoamor, intramuscularly every Macy Werner 1000mcg/ML Solution 2wks BD Disp Needle use as directed for 25units D51.9 Silcoff, 25G X B12 injections Macy Werner 9 1" Misc BD 3ML Luer-Bharat use as directed for 25units D51.9 Alexandracoff, Syringe/26G X 5/8" B12 administration Macy Werner 26G X 5/8" 3 ML Misc Triamcinolone Apply Once To Twice Unknown Acetonide Daily To Hands And 9 0.1% Cream Feet as Needed For Rash Freestyle 28G Use Once A Day as 100units Silcoff, Lancets Directed For Blood Mcay Werner Sugar Monitoring Guaifenesin ER 1 twice a day as 30tabs J20.9 Demarco, 1200mg needed for chest Macy Werner Tablets ER 12HR congestion Baclofen 1 tabs for muscle 30tabs M54.2 Demarco, 10mg Tablets tightness, three Macy Werner 9 times a day Vitamin D take 1 capsule by 14caps E55.9 Demarco, (Ergocalciferol) mouth every week; for Macy Werner vitamin d deficiency 34837Hxtd Capsules Montelukast Sodium Take One Tablet By 30tabs J45.20 Demarco, Mouth Every Evening Macy Werner 10mg Tablets For Allergies And Asthma J30.9 Omeprazole Take One Capsule By 30caps K21.9 Adriel Zamorano, 05/16/2018 40mg Mouth Every Day D.O. Capsules DR Metformin HCL ER Take One Tablet By 60tabs E11.9 Alphonso Pal, 2017 500mg Mouth Twice A Day M.D. Tablets ER 24HR Onetouch Ultra Blue use as directed up 100units E11.9 Alphonso Pal, 02/2018 to once/day for M.D. Strips blood sugar monitoring Onetouch Ultra 2 use as directed for 1units E11.9 Alphonso Pal, 2017 blood sugar M.D. w/Device Kit monitoring Accu-Chek Fastclix use once a day as 102units E11.9 Alphonso Pal, 05/02 Lancets directed for blood M.D. Misc sugar monitoring OT/PT Wheelchair M54.5 Alphonso Pal, 03/05/2018 Evaluation [...] of 1 180ml J45.20 Alphonso Pal, 10/08/2017 [place]/Albuterol vial via nebulizer M.D. Sulfate every 4 [...] For Mood 300mg Tablets ER 24HR F41.9 Escitalopram Oxalate Take One Tablet By 30tabs F34.1 Alphonso Pal, 10mg Mouth Every Day M.D. Tablets For Mood F41.9 Clonazepam 1/2-1 by mouth 30tabs F41.9 Alphonso Pal, 02/13/2017 0.5mg Tablets three times a day M.D. as needed for anxiety FQ Prevail Extra use as directed up 180units Alphonso Pal, 01/24/2017 Underwear LG to 8 times a day M.D. Walker wheeled walker w 1units M51.36 Lisa Miranda PA 01/03/2017 [facility] seat, height adjustable use as directed Ketoconazole [...] Repair Joystick 1units M51.36 Adriel Zamorano, 05/31/2016 [facility] required for D.O. motorized wheelchair Nebulizer use as directed 1units J45.30 Alphonso Pal, 03/26/2016 Device M.D. Naproxen Take One Tablet By 60tabs M43.17 Alphonso Pal, 01/30/2016 500mg Tablets Mouth Twice A Day as M.D. Needed For Back Pain, Take With Food M54.5 M51.36 Fluticasone Propionate 2 sprays into each 16units J31.0 Alphonso Pal, 10/11/2015 nostril once daily M.DEric 50mcg/Act Suspension for nasal congestion H69.93 H92.03 Med Cup For Nebulizer with tubing 1units J45.20 Alphonso Pal M.D. Wheelchair Help Desk Rep 1units R26.89 Alphonso Pal M.D. 02/08/2015 M51.36 [...] to M51.36 Alphonso Pal, 10/08/2013 Tires For [employer] install M.D. M54.89 R26.89 Thumb Spica Splint For use as directed 1units 727.04 Alphonso Pal M.D. 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 Atorvastatin Calcium Take [...] nostril once a day Macy Werner 10/24/2018 [place] for nasal 50mcg/Act congestion, for 1 Suspension month H92.02 Medications Administered in Office Medication SIG Qnty Indications Ordering Provider Date B12 Injection Nurse's Schedule 03/03/2019 Injection B12 Injection Alphonso Pal M.D. 02/02/2019 Injection SC/Im Injections Alphonso Pal M.D. 02/02/2019 Injection B12 Injection Alphonso Pal M.D. 11/25/2018 Injection [...] CPT Code Status Date Vaccine Lot # [id number] Given 03/03/2019 Influenza Virus Vaccine, Quadrivalent, Split, [id number] Preservative Free 02938 Given 04/08/2018 Influenza Virus Vaccine, Quadrivalent, Split, [id number] Preservative Free 29443 Given 03/10/2018 Adacel or Boostrix, [id number] 63456 Given 02/13/2017 Influenza Virus Vaccine, Quadrivalent, Split, [id number] Preservative Free 48732 Given 08/28/2016 Prevnar 13 [id number] 06366 Given 02/14/2016 Influenza Virus Vaccine, Quadrivalent, Split, [id number] Preservative Free 22565 Given 03/28/2015 Influenza Virus Vaccine, Quadrivalent, Split, [id number] Preservative Free 64613 Given 12/06/2014 Flu, Split Virus 3Yrs 00772 Given 04/30/2014 Flu, Split Virus 3Yrs [id number] 72936 Given 05/23/2013 Flu, Split Virus 3Yrs [id number] 82953 Given 04/07/2012 Flu, Split Virus 3Yrs [id number] 99021 Given 02/21/2011 Flu, Split Virus 3Yrs [id number] 72075 Given 07/14/2010 Pneumococcal Immunization [id number] 51190 Given 07/14/2010 Adacel or Boostrix, TDaP [id number] 22475 Given 04/12/2010 Flu, Split Virus 3Yrs [id number] 41581 Given 03/01/2009 Flu, Split Virus 3Yrs [id number] 24419 Given 09/19/2000 Td Immunization U-MenB Given Unknown Meningococcal B,Unspecified Vital Signs Date Vital Result Comment 03/03/2019 3:07pm BP Systolic 118 mmHg BP Diastolic 70 mmHg Height 60 inches 5'0" Weight 256.00 lb BMI (Body Mass Index) 50.0 kg/m2 02/02/2019 3:43pm BP Systolic 122 mmHg BP Diastolic 78 mmHg Weight 253.00 lb w/shoes Results Test Date Facility Test Result H/L Range Note Laboratory test 02/02/2019 In House Hemoglobin A1c 6.3 finding Laboratory test 11/18/2018 [facility] Point of Care 99 mg/dL Normal 70-100 1 finding [phone] Glucose Laboratory test 10/27/2018 In House Hemoglobin A1c 6.1 finding 1 Social Media Coordinator: [id number] Procedures Date Code Description Status 02/02/2019 31671 SC/Im Injections Completed 11/25/2018 16255 SC/Im Injections Completed 10/27/2018 39238 SC/Im Injections Completed 09/22/2018 67630 SC/Im Injections Completed 07/28/2018 [id number] Diabetic Foot Exam Completed 06/10/2018 892463437 Diabetic Retinal Eye Exam Completed 12/22/2017 [id number] Mammogram Completed Medical Devices Description No Information Available Encounters Type Date Location Provider Dx Diagnosis Office Visit 03/03/2019 Main Office Alphonso Pal, M51.36 Other intervertebral 3:00p M.D. disc degeneration, lumbar region M43.17 Spondylolisthesis, lumbosacral region M54.5 Low back pain D51.9 Vitamin B12 deficiency anemia, unspecified Z23 Encounter for immunization Z68.43 Body mass index (BMI) 50.0-59.9, adult Office Visit 02/02/2019 3:30p Main Office Alphonso Pal, E11.9 Type 2 diabetes M.D. mellitus without complications E55.9 Vitamin D deficiency, unspecified D51.9 Vitamin B12 deficiency anemia, unspecified F34.1 Dysthymic disorder M43.17 Spondylolisthesis, lumbosacral region M51.36 Other intervertebral disc degeneration, lumbar region K21.9 Gastro-esophageal reflux disease without esophagitis I10 Essential (primary) hypertension Office Visit 11/25/2018 1:45p Main Office Demarco M51.36 Other intervertebral Macy [...] H69.92 Unspecified Eustachian tube disorder, left ear Assessments Date Code Description Provider 03/03/2019 M51.36 Other intervertebral disc degeneration, Alphonso Pal M.D. lumbar region 03/03/2019 M43.17 Spondylolisthesis, lumbosacral region Alphonso Pal M.D. 03/03/2019 D51.9 Vitamin B12 deficiency anemia, unspecified Nurse's Schedule 03/03/2019 M54.5 Low back pain Alphonso Pal M.D. 03/03/2019 D51.9 Vitamin B12 deficiency anemia, unspecified Alphonso Pal M.D. 03/03/2019 Z23 Encounter for immunization Alphonso Pal M.D. 03/03/2019 Z68.43 Body mass index (BMI) 50.0-59.9, adult Alphonso Pal M.D. 02/02/2019 E11.9 Type 2 diabetes mellitus without [...] unspecified Nurse's Schedule Plan of Treatment Future Appointment(s):05/11/2019 11:30 am - Nurse's Schedule at Main Cjokie2005/11 11:30 am - Alphonso Pal M.D. at Main Iiyoot3506/09/2019 10:00 am - Alphonso Pal M.D. at Main Yexsin4605/23/2018 - Blaine FischerE11.65 Type 2 diabetes mellitus with hyperglycemiaComments:reviewed why glu tends to be higher in the morningso far doing well with control improving. Continue all the aboveFollow up:cont current treatment discussed trying to have a protein stack w small amt of carb as evening snack and see if this helps a.m. blood wmrycwG35.0 Urinary tract infection, site not specifiedFollow up:Urine was clean today Functional Status Description No Information Available Mental Status Description No Information Available Referrals Description No Information Available
--- OUTSIDE RECORDS SUMMARY | 2019-03-07 18:31 | XMS REPORT | Continuity of Care Document ---
:1970 External Reference #:[id number] Author Name Dyllan Davis, OD Address [address] [place] [address] Care Team Providers Name Role Phone Demarco NAGEL, [facility] Care Team Information [employer] Machine Operator Helper [phone] Problems Active Problems Provider Date Essential hypertension Onset: 12/18/2013 Pure hypercholesterolemia Onset: 12/18/2013 Acute and subacute iridocyclitis Dyllan Escobar O.D. Onset: 12/18/2013 Presbyopia Dyllan Escobar O.D. Onset: 03/01/2014 Vitreous opacities Dyllan Escobar O.D. Onset: 03/01/2014 Acquired spondylolisthesis Onset: 05/31/2016 Spondylolisthesis L5/S1 level Onset: 10/13/2015 Sciatica Onset: 10/13/2015 Pure hypercholesterolemia Onset: 05/31/2009 Obstructive sleep apnea syndrome Onset: 03/28/2015 Mixed urinary incontinence Onset: 11/03/2010 Mild intermittent asthma Onset: 03/28/2015 Mild intermittent asthma Onset: 10/08/2017 Meralgia paresthetica of right leg Onset: 10/13/2015 Intrinsic asthma without status asthmaticus Onset: 11/03/2010 Gastroesophageal reflux disease Onset: 05/31/2009 Essential hypertension Onset: 03/28/2015 Elongated styloid process syndrome Onset: 03/28/2015 Dysthymia Onset: 05/31/2009 Degeneration of lumbar intervertebral disc Onset: 03/28/2015 Benign essential hypertension Onset: 09/04/2013 Backache Onset: 05/31/2009 Anxiety state Onset: 05/31/2009 Social History Type Date Description Comments Sex Unknown ETOH Use Occasionally consumed alcohol in the past Tobacco Use Start: Unknown Patient is a current smoker, smokes every day Smoking Status Reviewed: 02/09/19 Patient is a current smoker, smokes every day Allergies, Adverse Reactions, Alerts Active Allergies Reaction Severity Comments Date Penicillin 12/18/2013 Pregabalin 05/13/2018 Bee Stings 03/01/2014 Sulfamethoxazole / Trimethoprim 05/13/2018 Sulfa Antibiotics 11/29/2017 Erythromycin 11/29/2017 Latex 11/29/2017 Medications Active Medications SIG Qnty Indications Ordering Date Provider Olopatadine HCL 1 drop both eyes 2.500ml Dyllan Davis, 02/09/2019 0.2% every day OD Solution Metformin HCL ER 2 by mouth every 60tabs E11.65 Demarco NAGEL, 05/02/2018 evening; for blood Alphonso 500mg Tablets ER sugar control 24HR Nexium 24HR 1 every morning at 30caps K21.9 Demarco NAGEL, 01/20/2018 20mg least [address] before breakfast; for acid reflux Epinephrine use as directed for 2units Z91.030 Demarco NAGEL, 11/15/2017 anaphylactic Alphonso 0.3mg/0.3ML Solution reactions to bee Auto-Inject stings Ipratropium inhale contents of 180units J45.20 Demarco NAGEL, 10/08/2017 Hurley/Albuterol 1 vial via Alphonso Sulfate nebulizer every 4 hours as needed for 0.5-2.5(3)mg/3ML cough, wheezing, Solution sob Qvar to be used during 8.700units J45.20 Demarco NAGEL, 10/08/2017 80mcg/Act allergy seasons and Alphonso Aerosol at onset of colds; 2 puffs 2x/day; for asthma; rinse mouth out after use Mirtazapine Take One Tablet By 30tabs G47.00 Demarco NAGEL, 07/10/2017 30mg Mouth AT Bedtime Alphonso Tablets For Sleep Bupropion HCL ER Take One Tablet By 30tabs F34.1 Demarco NAGEL, 04/01/2017 (XL) Mouth Every Morning Alphonso 300mg Tablets ER For Mood 24HR Clonazepam 1/2-1 by mouth 30tabs F41.9 Demarco NAGEL, 02/13/2017 0.5mg three times a day Alphonso Tablets as needed for anxiety Escitalopram Oxalate Take One Tablet By 30tabs F34.1 Demarco NAGEL, 2016 Mouth Every Day For Alphonso 10mg Tablets Mood Ketoconazole use 3 times a week 120units L21.0 Demarco NAGEL, 10/29/2016 2% to start, then Alphonso Shampoo taper down as directed Gabapentin Take One Capsule By 120caps G57.11 Demarco NAGEL, 07/30/2016 300mg Mouth Every Morning Alphonso Capsules And Take Three Capsules By Mouth AT Bedtime For Neck And Right Leg Pain Naproxen Take One Tablet By 60tabs M43.17 Demarco NAGEL, 01/30/2016 500mg Mouth Twice A Day Alphonso Tablets as Needed For Back Pain, Take With Food Fluticasone 2 sprays into each 16units J31.0 Demarco NAGEL, 10/11/2015 Propionate nostril once daily Alphonso 50mcg/Act for nasal Suspension congestion Ventolin HFA Inhale Two Puffs By 18units J45.21 Demarco NAGEL, 04/30/2014 Mouth Every 4 Hours Alphonso 108(90Base) mcg/Act as Needed For Aerosol Asthma Symptoms Losartan Potassium Take One Tablet By 30tabs I10 Demarco NAGEL, 10/09/2013 Mouth Every Morning Alphonso 50mg Tablets For High Blood Pressure Atorvastatin Calcium Take One Tablet By 30tabs E78.0 Demarco NAGEL, 2012 Mouth Every Day For Alphonso 40mg Tablets High Cholesterol Singulair Take One Tablet By 30tabs J45.20 Demarco NAGEL, 11/07/2008 10mg Mouth Every Evening Alphonso Tablets For Allergies And Asthma Lipitor Unknown 20mg Tablets Esomeprazole Sodium (Nexium) Unknown 40mg Solution Rec Losartan Potassium Unknown 50mg Tablets Atorvastatin Calcium Unknown 40mg Tablets Albuterol Sulfate (Ventolin) Unknown (2.5mg/3ML) 0.083% Nebulizer Acetaminophen 2 by mouth every 4 Unknown 325mg hours as needed Tablets Bupropion HCL ER Unknown (SR) 150mg Tablets ER 12HR Fluticasone Unknown Propionate 50mcg/Act Suspension Gabapentin Unknown 300mg Capsules Montelukast Sodium Unknown 10mg Tablets Naproxen Unknown 500mg Tablets Qvar Unknown 40mcg/Act Aerosol Trazodone HCL Unknown 50mg Tablets Tramadol HCL Unknown 50mg Tablets Immunizations Description No Information Available Vital Signs Date Vital Result Comment 06/10/2018 4:08pm Intraocular Pressure Right Eye 15 mmHg Intraocular Pressure Left Eye 15 mmHg 11/29/2017 10:49am Intraocular Pressure Right Eye 16 mmHg Intraocular Pressure Left Eye 16 mmHg Results Description No Information Available Procedures Description No Information Available Medical Devices Description No Information Available Encounters Description No Information Available Assessments Date Code Description Provider 02/09/2019 H10.45 Other chronic allergic conjunctivitis Dyllan Davis OD Plan of Treatment Future Appointment(s):06/15/2019 1:30 pm - Dyllan [id number] - Dyllan Davis ODH10.45 Other chronic allergic conjunctivitisFollow up :05/2019 full, sooner PRN Functional Status Description No Information Available Mental Status Description No Information Available Referrals Description No Information Available
[2019-03-07] MEDS ORDERED: Acetaminophen TAB* 325 MG PO ONE (18:32)
== END 2019-03-07 19:23 | disposition home or self-care (01) ==
LOC: UCCORT 18:00
DX: T63.441A Toxic effect of venom of bees, accidental (unintentional), initial encounter (principal); M79.602 Pain in left arm; R11.0 Nausea; Y92.9 Unspecified place or not applicable; E11.40 Type 2 diabetes mellitus with diabetic neuropathy, unspecified; I10 Essential (primary) hypertension; Z96.692 Finger-joint replacement of left hand; Z88.0 Allergy status to penicillin; Z88.2 Allergy status to sulfonamides; Z88.8 Allergy status to other drugs, medicaments and biological substances; Z88.1 Allergy status to other antibiotic agents; Z91.030 Bee allergy status; Z91.040 Latex allergy status; Z87.891 Personal history of nicotine dependence
CPT/HCPCS: 99213; A9270-GY; G0463; J7512

== ENCOUNTER 2019-09-01 05:19 | Day surgery (SDC) | payer OTHER ==
--- NOTE | 2019-08-24 14:14 | HP ---
AMENDED REPORT NOW INCLUDES DESIGNATED COSIGNER - ESIGNED BEFORE ADJUSTMENTS PREOPERATIVE HISTORY AND PHYSICAL: DATE OF ADMISSION/SURGERY: 09/01/19 DATE OF OFFICE VISIT/ENCOUNTER: 08/12/19 ATTENDING SURGEON: Caprice Lanier MD * (DICTATED BY JIM ESPINOSA) PROCEDURE: Carpometacarpal arthroplasty, right thumb; carpal tunnel release, right wrist. HISTORY OF PRESENT ILLNESS: This is a 48-year-old female who has had a complaint of numbness and tingling in her right hand, ongoing for some time now. She also has had pain at the carpometacarpal joint of her right thumb and x-rays have showed significant degenerative arthritis there. She did have a nerve conduction study for the right wrist, which showed evidence of carpal tunnel syndrome. She has failed conservative treatment including bracing and physical therapy exercises. She recently underwent a left thumb CMC arthroplasty and a left wrist carpal tunnel release. She has done quite well with those procedures and would like to pursue the same on the right side. The patient has recently been using a wheelchair for some mobility issues related to her chronic back pain. She has also been diagnosed with diabetes. She is currently using tramadol for pain control primarily for her back. This is prescribed by Dr. Najera. PAST MEDICAL HISTORY: 1. Chronic back pain. 2. Diabetes. 3. Sleep apnea, with CPAP at night. 4. GERD. 5. Hypertension. 6. Hypercholesterolemia. 7. Asthma. 8. Depression. PAST SURGICAL HISTORY: 1. Left wrist carpal tunnel release. 2. Left thumb CMC arthroplasty. 3. Left thumb trigger release. CURRENT MEDICATIONS: 1. Atorvastatin calcium 40 mg daily. 2. Bupropion HCl ER 300 mg daily. 3. Clonazepam 0.5 mg daily. 4. Cyanocobalamin 100 mcg/mL once monthly. 5. Diclofenac sodium 1.5% apply 20 mL to knees 2 times a day. 6. EpiPen use as directed. 7. Escitalopram oxalate 10 mg daily. 8. Esomeprazole magnesium 40 mg daily. 9. Esomeprazole sodium 40 mg daily. 10. Gabapentin 300 mg 1 q.a.m., 3 q.h.s. 11. Ipratropium bromide/albuterol sulfate 0.5/2.5 use as directed. 12. Losartan potassium 50 mg daily. 13. Metformin HCl 500 mg twice a day. 14. Mirtazapine 15 mg daily. 15. ProAir HFA inhaler 2 puffs q.4 hours p.r.n. 16. Proventil HFA inhaler 2 puffs q.4 hours p.r.n. 17. QVAR 80 mcg/ACT use as directed. 18. Singulair 10 mg daily. 19. Tramadol HCl 50 mg twice a day. 20. Vitamin D 5000 units weekly. ALLERGIES: CECLOR, ERYTHROMYCIN, LATEX, LYRICA, PATADAY, PENICILLIN, SULFA ANTIBIOTICS. FAMILY MEDICAL HISTORY: Significant for heart disease. SOCIAL HISTORY: The patient is currently disabled and unemployed. She is a smoker approximately half-a-pack a day since age 13. She also uses a vape. She denies recreational drug use and denies alcohol use. REVIEW OF SYSTEMS: Negative for general, cephalic, cardiovascular, GI, . Musculoskeletal: Positive for current complaint along with chronic back pain. Negative for integumentary, endocrine, neurologic, and hematologic symptoms. Infectious Disease: Negative for history of MRSA, hepatitis C, HIV. PHYSICAL EXAMINATION GENERAL: A well-developed, well-nourished 48-year-old female, in no acute distress. VITAL SIGNS: Height 5 feet tall, weight 258 pounds. Pulse rate 80, blood pressure 132/86. HEENT: Normocephalic, atraumatic. Pupils are equal, round, and reactive to light and accommodation. Extraocular movements are intact. Throat is clear. NECK: Supple. No palpable lymph nodes. PULMONARY: Lungs are clear to auscultation bilaterally. No wheezes, rales, or rhonchi. CARDIOVASCULAR: Regular rate and rhythm. S1, S2. No murmurs, rubs, or gallops. No edema. ABDOMEN: Positive bowel sounds. Soft, nontender. NEUROLOGICAL: Alert and oriented x3. Cranial nerves II through XII are intact. MUSCULOSKELETAL: On exam of the right upper extremity, she has no visible thenar wasting, but there is weakness with thumb abduction and decreased sensation to light touch in the median nerve distribution. Positive Tinel's at the median nerve at the wrist. Pain with palpation at the carpometacarpal joint of the thumb. Positive grind test. IMAGING STUDIES: EMG/nerve conduction studies show evidence of right carpal tunnel syndrome. X-rays of the right thumb show significant degenerative changes at the CMC joint. IMPRESSION: 1. Right carpal tunnel syndrome. 2. Right thumb carpometacarpal joint arthritis. PLAN: The patient is scheduled to undergo a carpometacarpal arthroplasty of the right thumb and a carpal tunnel release of the right wrist with Dr. Lanier on 09/01/19. She will return to the office 10 days postop for followup and suture removal. A prescription for Stendal was e-scribed to the patient's pharmacy for postoperative pain management. JIM ESPINOSA [id number]/[facility] #: [id number] ISABEL
[~2019-09-01 05:19] MED LIST changes: +Buffered Lidocaine 1% SYRIN* 1 ML/SYRINGE INTRADERM ONE; -Lidocaine 1% INJ* 10 MG/ML 30 ML SDV ONE; -Lidocaine 2% PF * 5 ML VIAL ONE; -Midazolam* 1 MG/ML 2 ML VIAL (2 MG) ONE; -Naloxone* 0.4 MG/ML 1 ML VIAL IV PRN; -Propofol* 10 MG/ML 20 ML BTL ONE; -fentaNYL* 50 MCG/ML 2 ML VIAL (100 MCG VIAL) ONE
[2019-09-01] MEDS ORDERED: Lactated Ringers 1000 ML Bag* 1,000 ML IV SCH (06:00)
[2019-09-01] MEDS ORDERED: DiMENhydriNATE IV* 50 MG/ML VIAL IV PUSH ONE (06:00)
[2019-09-01] MEDS ORDERED: Famotidine IV* 10 MG/ML 2 ML (20 mg) IV ONE (06:00)
[2019-09-01] MEDS ORDERED: DiMENhydriNATE IV* 50 MG/ML VIAL ONE (06:17)
[2019-09-01] MEDS ORDERED: Clindamycin 900 MG/D5W BAG(*) 900 MG/50 ML BAG IVPB ONE (06:17)
[2019-09-01] MEDS ORDERED: Famotidine IV* 10 MG/ML 2 ML (20 mg) ONE (06:18)
[2019-09-01] MEDS ORDERED: Lidocaine 1% INJ* 10 MG/ML 30 ML SDV ONE (06:57)
[2019-09-01] MEDS ORDERED: Bupivacaine 0.5%* 50 ML MDV VIAL ONE (06:57)
[2019-09-01] MEDS ORDERED: fentaNYL* 50 MCG/ML 2 ML VIAL (100 MCG VIAL) ONE (07:06)
[2019-09-01] MEDS ORDERED: Midazolam* 1 MG/ML 5 ML VIAL (5 MG) ONE (07:06)
[2019-09-01] MEDS ORDERED: Propofol* 10 MG/ML 20 ML BTL ONE (07:06)
[2019-09-01] MEDS ORDERED: Lidocaine 2% PF * 5 ML VIAL ONE (07:07)
[2019-09-01] MEDS ORDERED: Succinylcholine* 20 MG/ML 10 ML VIAL ONE (08:21)
[2019-09-01] MEDS ORDERED: Phenylephrine 40 MCG/ML SYRINGE ONE (08:21)
[2019-09-01] MEDS ORDERED: Ondansetron INJ* 2 MG/ML VIAL ONE (08:27)
[2019-09-01] MEDS ORDERED: PROCHLORPERAZINE INJ 5 MG/ML 2 ML VIAL ONE (09:15)
[2019-09-01] MEDS ORDERED: oxyCODONE/Acetamin 5/325 MG* TAB PO PRN (10:04)
[2019-09-01] MEDS ORDERED: Naloxone* 0.4 MG/ML 1 ML VIAL IV PRN (10:04)
[2019-09-01] MEDS ORDERED: PROCHLORPERAZINE INJ 5 MG/ML 2 ML VIAL IV PRN (10:04)
[2019-09-01] MEDS ORDERED: HYDROcodone/ACETAMIN 5-325 MG* 1 TAB PO PRN (10:04)
[2019-09-01] MEDS ORDERED: fentaNYL* 50 MCG/ML 2 ML VIAL (100 MCG VIAL) IV PRN (10:04)
[2019-09-01 10:28] VITALS: BP 109/70
--- NOTE | 2019-09-02 01:48 | OP ---
DATE OF OPERATION: 09/01/19 - [facility] DATE OF : 70 SURGEON: Caprice Lanier MD JUDO INSTRUCTOR: JIM Keith ANESTHESIA: General. PRE-OP DIAGNOSES: Right carpal tunnel syndrome and thumb carpometacarpal arthritis. POST-OP DIAGNOSES: Right carpal tunnel syndrome and thumb carpometacarpal arthritis. OPERATIVE PROCEDURE: Right carpal tunnel release, right thumb CMC arthroplasty. INDICATIONS: Maggie is a 48-year-old female who has painful arthritis at the base of her thumb as well as carpal tunnel syndrome in her right hand. She presents for right carpal tunnel release and thumb CMC arthroplasty. ESTIMATED BLOOD LOSS: Zero. TOURNIQUET TIME: About 45 minutes. DESCRIPTION OF PROCEDURE: The patient was brought to the operating room and was given a general anesthetic and placed in the supine position on the operating table with the tourniquet around her right forearm. The skin of her right hand and forearm was prepped and draped in the usual sterile fashion. The hand and forearm were exsanguinated and the tourniquet elevated to 250 mmHg. A longitudinal incision was made on the palm in line with the ring finger and we dissected through the subcutaneous tissue down to the transverse carpal ligament. The ligament was divided sharply with a knife and then more proximally with the scissors. The nerve was dissected free from the surrounding tissue and there was an area of moderate compression at the mid portion of the ligament. The wound was irrigated and the skin edges reapproximated with 4-0 nylon suture. An S-shaped incision was made centered at the thumb CMC joint on the dorsoradial aspect of the thumb, dissected bluntly down to the first compartment of the extensor tendons, which were retracted radially. The branch of radial artery was carefully dissected off the CMC joint and retracted by the surgical services assistant, Soha Pozo, whose assistance was central for safe completion of the case. A distally based U-shaped flap was created of the thumb CMC joint capsule and subperiosteally dissected off the trapezium. The trapezium was then removed in its entirety and the wound was copiously irrigated with saline. The CMC joint capsule was secured to the FCR tendon with a 4-0 nylon suture. The remainder of the capsule was closed also with 4-0 nylon suture. This placed the thumb metacarpal at a very nice abducted position. The skin edges were reapproximated with 4-0 nylon suture. The wound was dressed with Xeroform, 4x4, Webril, and an Efraín wrap with the thumb spica splint. The patient tolerated the procedure well and was brought to the recovery room in good condition. [id number]/[facility] #: [id number] MTDD
== END 2019-09-01 10:27 | disposition home or self-care (01) ==
LOC: OR 05:19 → MERGE 07:30 → OR 10:27
PROVIDERS: ATTEND Orthopaedic Surgery
DX: M18.11 Unilateral primary osteoarthritis of first carpometacarpal joint, right hand (principal); G56.01 Carpal tunnel syndrome, right upper limb; G47.33 Obstructive sleep apnea (adult) (pediatric); K21.9 Gastro-esophageal reflux disease without esophagitis; I10 Essential (primary) hypertension; E78.00 Pure hypercholesterolemia, unspecified; E11.8 Type 2 diabetes mellitus with unspecified complications; F17.210 Nicotine dependence, cigarettes, uncomplicated; J45.909 Unspecified asthma, uncomplicated; E66.01 Morbid (severe) obesity due to excess calories; F32.9 Major depressive disorder, single episode, unspecified; M43.17 Spondylolisthesis, lumbosacral region; M51.36 Other intervertebral disc degeneration, lumbar region; M50.323 Other cervical disc degeneration at C6-C7 level; M25.541 Pain in joints of right hand; Z88.0 Allergy status to penicillin; Z79.84 Long term (current) use of oral hypoglycemic drugs; Z88.2 Allergy status to sulfonamides; Z88.8 Allergy status to other drugs, medicaments and biological substances; Z91.040 Latex allergy status; Z88.1 Allergy status to other antibiotic agents; Z91.030 Bee allergy status; Z79.891 Long term (current) use of opiate analgesic; Z79.51 Long term (current) use of inhaled steroids; Z68.42 Body mass index [BMI] 45.0-49.9, adult
CPT/HCPCS: 81025; 88304; 88311; J0330; J0780; J1240; J2250; J2405; J2704; J3010; J3490